=== PATIENT | female | born 1990 | race Caucasian/White ===

== ENCOUNTER 2020-08-26 16:10 | Emergency (ER) | payer SELFPAY ==
[~2020-08-26] VITALS: Ht 165.1 cm; Wt 114.0 kg
[2020-08-26 16:44] LABS: BACTERIA,URINE FEW /HPF; BILIRUBIN,URINE NEGATIVE (NEGATIVE); CLARITY,URINE CLOUDY; COLOR,URINE M00021YELLOW; GLUCOSE, URINE (UA) NEGATIVE (NEGATIVE); KETONES,URINE NEGATIVE (NEGATIVE); LEUKOCYTE ESTERASE ,URINE 2+ (NEGATIVE); NITRITE,URINE NEGATIVE (NEGATIVE); PH,URINE 6.5 (5-9); PROTEIN,URINE NEGATIVE (NEGATIVE)
[2020-08-26 17:00] LABS: BASOPHILS % (AUTO) 0 % (0-10); EOSINOPHILS # (AUTO) 0.1 10^3/uL (0.0-0.3); EOSINOPHILS % (AUTO) 1 % (0-10); HEMATOCRIT 41 % (35-52); HEMOGLOBIN 13.6 G/DL (11.5-16.0); LYMPHOCYTES # (AUTO) 2.3 X 10^3 (1.0-4.0); LYMPHOCYTES % (AUTO) 24 % (12-44); MEAN CORPUSCULAR HEMOGLOBIN 29 PG (25-34); MEAN CORPUSCULAR HGB CONC 33 G/DL (32-36); MEAN CORPUSCULAR VOLUME 86 FL (80-99); MONOCYTES # (AUTO) 0.7 X 10^3 (0.0-1.0); MONOCYTES % (AUTO) 8 % (0-12); NEUTROPHILS # (AUTO) 6.5 X 10^3 (1.8-7.8); NEUTROPHILS % (AUTO) 67 % (42-75); PLATELET COUNT 307 10^3/uL (130-400); WHITE BLOOD COUNT 9.7 10^3/uL (4.3-11.0)
[2020-08-26 17:29] LABS: BUN/CREATININE RATIO 18; CALCIUM 9.4 MG/DL (8.5-10.1); CARBON DIOXIDE 23 MMOL/L (21-32); CHLORIDE 103 MMOL/L (98-107); CREATININE SERUM 0.74 MG/DL (0.60-1.30); GFR ESTIMATED > 60; GLUCOSE 88 MG/DL (70-105); SODIUM 137 MMOL/L (135-145)
[2020-08-26] MEDS ORDERED: fentaNYL INJ 100 MCG/2 ML AMP IVP ONE (17:45)
[2020-08-26] MEDS ORDERED: ONDANSETRON 4 MG/2 ML (SDV) Z0FRAN IVP ONE (17:45)
--- NOTE | 2020-08-26 18:32 | ED GU-Female ---
General Chief Complaint: Abdominal/GI Problems Stated Complaint: RIGHT SIDE PAIN Nursing Triage Note: Patient arrival POV referred from [facility] Walk In [facility] with c/o severe RLQ pain this am before noon and just was told she was at Walk In clinic. No vaginal cramping or bleeding, LMP 07/21/20. Nursing Sepsis Screen: No Definite Risk Exam Limitations: no limitations History of Present Illness Date Seen by Provider: Aug 26, 2020 Time Seen by Provider: 16:30 Initial Comments Patient is a 30-year-old G2, P1, female who presents with right lower quadrant/pelvic pain starting earlier today and positive test. Patient was seen at [facility] and had a positive urine test. Last menstrual period was 07/21/2020. Patient denies flank pain, urinary frequency urgency dysuria and hematuria. No nausea vomiting or sweats. No vaginal discharge. No prior abdominal surgeries. No other acute symptoms or complaints. Timing/Duration: this morning Severity/Quality: moderate Location: other Radiation: other Activities at Onset: other Sexual [place] History: other Modifying Factors: Improves With Other Associated Symptoms: other Allergies and Home Medications Allergies Coded Allergies: Penicillins (Verified Allergy, Unknown, 08/26/20) Patient Home Medication List Home Medication List Reviewed: Yes Review of Systems Review of Systems Constitutional: no symptoms reported EENTM: see HPI, no symptoms reported Respiratory: no symptoms reported, see HPI Cardiovascular: no symptoms reported, see HPI Gastrointestinal: no symptoms reported, see HPI Genitourinary: no symptoms reported, see HPI, pain Musculoskeletal: no symptoms reported, see HPI Skin: no symptoms reported, see HPI Psychiatric/Neurological: No Symptoms Reported, See HPI Endocrine: No Symptoms Reported Hematologic/Lymphatic: No Symptoms Reported All Other Systemes Reviewed Negative Unless Noted: Yes Past Qbxvzud-Ndoael-Srgkyo Hx Past Med/Social Hx: Reviewed Nursing Past Med/Soc Hx Patient Social History Alcohol Use: Occasionally Uses Smoking Status: Never a Smoker 2nd Hand Smoke Exposure: No Recent Infectious Disease Expo: No Recent Hopitalizations: No Seasonal Allergies Seasonal Allergies: No Past Medical History Surgeries: Yes (R hand cyst) Section Respiratory: No Cardiac: No Neurological: No : Yes Hx : 2 Hx Para: 1 Genitourinary: No Gastrointestinal: No Musculoskeletal: No Endocrine: No HEENT: No Cancer: No Psychosocial: No Integumentary: No Blood Disorders: No Physical Exam Vital Signs Vital Signs - First Documented 08/26/20 16:27 Temp 36.9 Pulse 96 Resp 16 B/P (MAP) 158/111 (127) Pulse Ox 99 O2 Delivery Room Air Capillary Refill : Less Than 3 Seconds Height, Weight, BMI Height: '" Weight: lbs. oz. kg; 41.00 BMI Method: General Appearance: no apparent distress HEENT: PERRL/EOMI, TMs normal, pharynx normal Neck: non-tender, full range of motion, supple Cardiovascular: normal peripheral pulses, regular rate, rhythm, no murmur Respiratory: lungs clear Gastrointestinal: soft, tenderness (Right lower quadrant pain/tenderness.), other Pelvic: normal external exam; No normal adnexa, No no cerv. 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, no motor/sensory deficits Focused Exam Sepsis Stage: Ruled Out Progress/Results/Core Measures Suspected Sepsis Recent Fever Within 48 Hours: No Infection Criteria Present: None New/Unexplained Altered Menta: No Sepsis Screen: No Definite Risk SIRS Temperature: Pulse: 96 Respiratory Rate: 16 Laboratory Tests 08/26/20 16:50: White Blood Count 9.7 Blood Pressure 158 /111 Mean: 127 Laboratory Tests 08/26/20 16:50: Creatinine 0.74, Platelet Count 307 Results/Orders Lab Results Laboratory Tests Test 08/26/20 16:31 08/26/20 16:50 08/26/20 18:25 Range/Units Urine Color [id number] Urine Clarity CLOUDY Urine pH 6.5 5-9 Urine Specific [place] 1.015 L 1.016-1.022 Urine Protein NEGATIVE NEGATIVE Urine Glucose (UA) NEGATIVE NEGATIVE Urine Ketones NEGATIVE NEGATIVE Urine Nitrite NEGATIVE NEGATIVE Urine Bilirubin NEGATIVE NEGATIVE Urine Urobilinogen 0.2 < = 1.0 MG/DL Urine Leukocyte Esterase 2+ H NEGATIVE Urine RBC (Auto) 3+ H NEGATIVE Urine RBC 10-25 H /HPF Urine WBC 10-25 H /HPF Urine Squamous Epithelial Cells 10-25 H /HPF Urine Crystals NONE /LPF Urine Bacteria FEW H /HPF Urine Casts NONE /LPF Urine Mucus NEGATIVE /LPF Urine Culture Indicated YES White Blood Count 9.7 4.3-11.0 10^3/uL Red Blood Count 4.75 4.35-5.85 10^6/uL Hemoglobin 13.6 11.5-16.0 G/DL Hematocrit 41 35-52 % Mean Corpuscular Volume 86 80-99 FL Mean Corpuscular Hemoglobin 29 25-34 PG Mean Corpuscular Hemoglobin Concent 33 32-36 G/DL Red Cell Distribution Width 13.3 10.0-14.5 % Platelet Count 307 130-400 10^3/uL Mean Platelet Volume 11.0 H 7.4-10.4 FL Immature Granulocyte % (Auto) 0 % Neutrophils (%) (Auto) 67 42-75 % Lymphocytes (%) (Auto) 24 12-44 % Monocytes (%) (Auto) 8 0-12 % Eosinophils (%) (Auto) 1 0-10 % Basophils (%) (Auto) 0 0-10 % Neutrophils # (Auto) 6.5 1.8-7.8 X 10^3 Lymphocytes # (Auto) 2.3 1.0-4.0 X 10^3 Monocytes # (Auto) 0.7 0.0-1.0 X 10^3 Eosinophils # (Auto) 0.1 0.0-0.3 10^3/uL Basophils # (Auto) 0.0 0.0-0.1 10^3/uL Immature Granulocyte # (Auto) 0.0 0.0-0.1 10^3/uL Sodium Level 137 135-145 MMOL/L Potassium Level 4.0 3.6-5.0 MMOL/L Chloride Level 103 98-107 MMOL/L Carbon Dioxide Level 23 21-32 MMOL/L Anion Gap 11 5-14 MMOL/L Blood Urea Nitrogen 13 7-18 MG/DL Creatinine 0.74 0.60-1.30 MG/DL Estimat Glomerular Filtration Rate > 60 BUN/Creatinine Ratio 18 Glucose Level 88 70-105 MG/DL Calcium Level 9.4 8.5-10.1 MG/DL Human Chorionic Gonadotropin, Quant 99 H <5 MIU/ML Micro Results Microbiology 08/26/20 Wet Prep - Final, Complete My Orders Orders - RAVI CATHERINE DO Cbc With Automated Diff (08/26/20 16:40) Basic Metabolic Panel (08/26/20 16:40) Hcg,Quantitative (08/26/20 16:40) Urinalysis (08/26/20 16:40) Urine Culture (08/26/20 16:31) Fentanyl Inj (Sublimaze Injection) (08/26/20 17:45) Ondansetron Injection (Zofran Injectio (08/26/20 17:45) Culture For Gc Only (08/26/20 17:43) Chlam Dna Probe (08/26/20 17:43) Wet Prep (08/26/20 17:48) Medications Given in ED Current Medications Medications Dose Ordered Sig/Macho Route Start Time Stop Time Status Last Admin Dose Admin Ceftriaxone Sodium 1000 mg/ Sterile Water 10 ml @ 200 mls/hr ONCE ONCE IV 08/26/20 21:30 08/26/20 21:32 08/26/20 21:31 200 MLS/HR Ondansetron HCl 4 mg ONCE ONCE IVP 08/26/20 17:45 08/26/20 17:46 DC 08/26/20 18:00 4 MG Vital Signs/I&O 08/26/20 08/26/20 08/26/20 16:27 17:59 20:15 Temp 36.9 36.9 34.8 Pulse 96 70 Resp 16 20 B/P (MAP) 158/111 (127) 134/84 (101) Pulse Ox 99 100 O2 Delivery Room Air Room Air Capillary Refill : Less Than 3 Seconds Blood Pressure Mean: 127 Departure Communication (Admissions) Right lower quadrant/pelvic paintenderness.\\ hCG quant: 99. Concern for possible appendicitis versus ectopic versus ovarian cyst versus kidney stone versus torsion, versus unknown cause. No imaging available at this facility. Dr. Lety Mello accepts to [facility]. Patient offered transfer by ambulance. She elects to go by POV with spouse driving. She is instructed to arrive immediately there is not stop for food or change of clothing. She is also informed that presentations suggestive of appendicitis or ectopic until proven otherwise. Patient agrees to drive directly to [place] [facility]. Impression Primary Impression: Right lower quadrant pain Disposition: XFER SHT-TRM HOSP Condition: Stable Departure-Patient Inst. Referrals: DANIEL RUBIO MD (PCP/Family) Primary Care Physician RAVI CATHERINE DO Aug 26, 2020 18:32
[2020-08-26] MEDS ORDERED: cefTRIAXone FOR IV USE 1,000 MG in WATER (STERILE) FOR INJECTION 10 ML IV ONE (21:30)
--- NOTE | 2020-08-26 21:35 | Diagnostic Imaging Report ---
EXAMINATION: US retroperitoneal complete. TECHNIQUE: Multiple real-time grayscale images were obtained over the kidneys in various projections, bilaterally. HISTORY: RLQ pain, + test, hematuria. COMPARISON: None available. FINDINGS: The right kidney demonstrates normal echogenicity and cortical thickness. The right kidney measures 11.1 x 4.7 x 6.1 cm. No hydronephrosis. The left kidney demonstrates normal echogenicity and cortical thickness. The left kidney measures 11.2 x 4.1 x 5.2 cm. No hydronephrosis. The urinary bladder is normal. IMPRESSION: Unremarkable kidneys without hydronephrosis. Dictated by: Dictated on workstation # [id number]
--- NOTE | 2020-08-26 21:39 | ED Abdominal Pain ---
General Chief Complaint: Abdominal/GI Problems Stated Complaint: RIGHT SIDE PAIN Nursing Triage Note: Patient arrival POV referred from [facility] with c/o severe RLQ pain this am before noon and just was told she was at Walk In clinic. No vaginal cramping or bleeding, LMP 07/21/20. Sepsis Screen: No Definite Risk Source of Information: Patient History of Present Illness Date Seen by Provider: Aug 26, 2020 Time Seen by Provider: 20:12 Initial Comments PT ARRIVES VIA POV IN TRANSFER FROM [facility]. PT STATES SHE BEGAN HAVING RLQ PAIN THIS MORNING WENT TO URGENT CARE IN [place]--HAD A POSITIVE TEST, AND THEN SENT TO [facility], THEN SENT HERE FOR ULTRASOUND PT HAD LAB AND PELVIC EXAM DONE THERE PAIN IS WORSE WITH MOVEMENTS, ESPECIALLY USING ABDOMINAL MUSCLES, SUCH BENDING OVER AND STANDING UP + NAUSEA, NO VOMITING. LAST ATE AT 10 AM TODAY HAD A NORMAL BM YESTERDAY NO FEVER STATES SHE THINKS SHE HAS UTI, BUT DOES NOT HAVE BURNING ON URINATION, OR URGENCY OR FREQUENCY, ONLY PAIN IN RLQ NO RADIATION OF PAIN LMP 07/21/20. NO CONTROL. PT HAD PREVIOUS VAGINAL DELIVERY OF 1 CHILD, THEN WITH TWINS. NO MISCARRIAGES OR ABORTIONS HAS NOT DONE A HOME TEST NO VAGINAL BLEEDING OR DISCHARGE. Allergies and Home Medications Allergies Coded Allergies: Penicillins (Verified Allergy, Unknown, 08/26/20) Home Medications Cefdinir 300 Mg Capsule, 300 MG PO BID Prescribed by: WILBERTO LORENZO on 08/26/206 Patient Home Medication List Home Medication List Reviewed: Yes Review of Systems Review of Systems Constitutional: no symptoms reported; No fever EENTM: No Symptoms Reported Respiratory: No Symptoms Reported Cardiovascular: No Symptoms Reported Gastrointestinal: See HPI, Abdominal Pain; Denies Constipated, Denies Diarrhea; Nausea; Denies Poor Appetite, Denies Poor Fluid Intake, Denies Vomiting Genitourinary: Denies Burning, Denies Discharge, Denies Drainage, Denies F requency, Denies Flank Pain, Denies Hematuria, Denies Incontinence, Denies Urgency Musculoskeletal: no symptoms reported; No back pain Skin: no symptoms reported; No rash Psychiatric/Neurological: No Symptoms Reported Endocrine: No Symptoms Reported Hematologic/Lymphatic: No Symptoms Reported Past Kdjunvl-Rslqxh-Jwroaq Hx Past Med/Social Hx: Reviewed Nursing Past Med/Soc Hx Patient Social History Alcohol Use: Occasionally Uses Drug of Choice: DENIES Smoking Status: Never a Smoker 2nd Hand Smoke Exposure: No Recent Infectious Disease Expo: No Recent Hopitalizations: No Seasonal Allergies Seasonal Allergies: No Past Medical History Surgeries: Yes ( X 1; RIGHT HAND GANGLION CYST REMOVAL) Section Respiratory: No Cardiac: No Neurological: No : Yes Hx : 2 Hx Para: 3 (FIRST -FOSS, VAGINAL DELIVERYSECOND -TWINS, ) Hx Total # of Abortions (Sp): 0 Reproductive Disorders: No Female Reproductive Disorders: Denies Genitourinary: No Gastrointestinal: No Musculoskeletal: No Endocrine: No HEENT: No Cancer: No Psychosocial: No Integumentary: No Blood Disorders: No Physical Exam Vital Signs Vital Signs - First Documented 08/26/20 16:27 Temp 36.9 Pulse 96 Resp 16 B/P (MAP) 158/111 (127) Pulse Ox 99 O2 Delivery Room Air Capillary Refill : Less Than 3 Seconds Height/Weight/BMI Height: '" Weight: lbs. oz. 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, no motor/sensory deficits, alert, normal mood/affect, oriented x 3 Skin: normal color, warm/dry; No rash Progress/Results/Core Measures Results/Orders Lab Results Laboratory Tests Test 08/26/20 16:31 08/26/20 16:50 08/26/20 18:25 Range/Units Urine Color [id number] Urine Clarity CLOUDY Urine pH 6.5 5-9 Urine Specific [place] 1.015 L 1.016-1.022 Urine Protein NEGATIVE NEGATIVE Urine Glucose (UA) NEGATIVE NEGATIVE Urine Ketones NEGATIVE NEGATIVE Urine Nitrite NEGATIVE NEGATIVE Urine Bilirubin NEGATIVE NEGATIVE Urine Urobilinogen 0.2 < = 1.0 MG/DL Urine Leukocyte Esterase 2+ H NEGATIVE Urine RBC (Auto) 3+ H NEGATIVE Urine RBC 10-25 H /HPF Urine WBC 10-25 H /HPF Urine Squamous Epithelial Cells 10-25 H /HPF Urine Crystals NONE /LPF Urine Bacteria FEW H /HPF Urine Casts NONE /LPF Urine Mucus NEGATIVE /LPF Urine Culture Indicated YES White Blood Count 9.7 4.3-11.0 10^3/uL Red Blood Count 4.75 4.35-5.85 10^6/uL Hemoglobin 13.6 11.5-16.0 G/DL Hematocrit 41 35-52 % Mean Corpuscular Volume 86 80-99 FL Mean Corpuscular Hemoglobin 29 25-34 PG Mean Corpuscular Hemoglobin Concent 33 32-36 G/DL Red Cell Distribution Width 13.3 10.0-14.5 % Platelet Count 307 130-400 10^3/uL Mean Platelet Volume 11.0 H 7.4-10.4 FL Immature Granulocyte % (Auto) 0 % Neutrophils (%) (Auto) 67 42-75 % Lymphocytes (%) (Auto) 24 12-44 % Monocytes (%) (Auto) 8 0-12 % Eosinophils (%) (Auto) 1 0-10 % Basophils (%) (Auto) 0 0-10 % Neutrophils # (Auto) 6.5 1.8-7.8 X 10^3 Lymphocytes # (Auto) 2.3 1.0-4.0 X 10^3 Monocytes # (Auto) 0.7 0.0-1.0 X 10^3 Eosinophils # (Auto) 0.1 0.0-0.3 10^3/uL Basophils # (Auto) 0.0 0.0-0.1 10^3/uL Immature Granulocyte # (Auto) 0.0 0.0-0.1 10^3/uL Sodium Level 137 135-145 MMOL/L Potassium Level 4.0 3.6-5.0 MMOL/L Chloride Level 103 98-107 MMOL/L Carbon Dioxide Level 23 21-32 MMOL/L Anion Gap 11 5-14 MMOL/L Blood Urea Nitrogen 13 7-18 MG/DL Creatinine 0.74 0.60-1.30 MG/DL Estimat Glomerular Filtration Rate > 60 BUN/Creatinine Ratio 18 Glucose Level 88 70-105 MG/DL Calcium Level 9.4 8.5-10.1 MG/DL Human Chorionic Gonadotropin, Quant 99 H <5 MIU/ML Micro Results Microbiology 08/26/20 Wet Prep - Final, Complete My Orders Orders - WILBERTO LORENZO DO Us Appendix [id number] (08/26/20 20:10) Us Ob<14 Wks Sngle W/Transvag (08/26/20 20:10) Us Renal Bilateral [id number] (08/26/20 20:10) Ceftriaxone For Iv Use (Rocephin For I (08/26/20 21:30) Medications Given in ED Current Medications Medications Dose Ordered Sig/Macho Route Start Time Stop Time Status Last Admin Dose Admin Ceftriaxone Sodium 1000 mg/ Sterile Water 10 ml @ 200 mls/hr ONCE ONCE IV 08/26/20 21:30 08/26/20 21:32 DC 08/26/20 21:31 200 MLS/HR Ondansetron HCl 4 mg ONCE ONCE IVP 08/26/20 17:45 08/26/20 17:46 DC 08/26/20 18:00 4 MG Vital Signs/I&O 08/26/20 08/26/20 08/26/20 08/26/20 16:27 17:59 20:15 22:11 Temp 36.9 36.9 34.8 Pulse 96 70 67 Resp 16 20 16 B/P (MAP) 158/111 (127) 134/84 (101) 150/92 Pulse Ox 99 100 100 O2 Delivery Room Air Room Air Room Air 08/27/20 00:00 Intake Total 10 ml Balance 10 ml Blood Pressure Mean: 101 Progress Progress Note : Progress Note PT DECLINES ANY PAIN MEDICATIONS DURING ER STAY PT ADVISED THAT APPENDIX WAS NOT VISUALIZED, AND NO GESTATIONAL SAC WAS VISIBLE AT THIS TIME, SO CANNOT COMPLETELY RULE OUT APPENDICITIS OR ECTOPIC , AND ADVISED TO FOLLOW UP WITH DR. RUBIO IN THE NEXT 1-2 DAYS FOR FURTHER CARE, AND RETURN TO ER IF WORSE. Diagnostic Imaging Comments APPENDIX ULTRASOUND--PER RADIOLOGIST REPORT AT 2146 FINDINGS: The appendix is nonvisualized. No focal mass, fluid collection or lymphadenopathy is seen. No free fluid is seen. IMPRESSION: Nonvisualized appendix. RENAL ULTRASOUND--PER RADIOLOGIST REPORT AT 2146 FINDINGS: The right kidney demonstrates normal echogenicity and cortical thickness. The right kidney measures 11.1 x 4.7 x 6.1 cm. No hydronephrosis. The left kidney demonstrates normal echogenicity and cortical thickness. The left kidney measures 11.2 x 4.1 x 5.2 cm. No hydronephrosis. The urinary bladder is normal. IMPRESSION: Unremarkable kidneys without hydronephrosis. OB ULTRASOUND--PER RADIOLOGIST REPORT AT 215 FINDINGS: Uterus: The uterus is retroverted and measures 8.3 x 7.0 x 3.9 cm. The myometrium is homogeneous without fibroids. Endometrium: The endometrium is normal in thickness and measures 1.4 cm. There is no visualized gestational sac, vascularity or fluid seen within the endometrial cavity. Adnexa: There is a 2.0 cm cystic lesion within the right ovary with surrounding vascularity suggestive of a corpus luteum cyst. There is internal debris noted. The left ovary is unremarkable. The right ovary measures 4.3 x 2.7 x 2.6 cm and the left ovary measures 2.4 x 1.6 x 1.6 cm. Duplex images reveal normal vascular flow to both ovaries. Other: There is no free fluid within the pelvis. IMPRESSION: 1. No visualized gestational sac within the endometrium. Recommend follow-up with beta hCG and ultrasound as clinically indicated. 2. A 2.0 cm cystic lesion within the right ovary favors a corpus luteum cyst. This could be followed up with ultrasound to document resolution. Ectopic would be within the differential but is considered less likely given its intraovarian placement. Close follow-up with beta hCG and ultrasound is recommended. Reviewed: Reviewed by Me Departure Impression Primary Impression: Right lower quadrant pain Additional Impressions: NEW DIAGNOSIS OF UTI (urinary tract infection) Microscopic hematuria Right ovarian cyst Disposition: 01 HOME, SELF-CARE Condition: Stable Departure-Patient Inst. Referrals: DANIEL RUBIO MD (PCP) Primary Care Physician Patient Instructions: Ovarian Cyst (DC), - The Second Month, Stomach Pain in Early , Urinary Tract Infections in Add. Discharge Instructions: NOTHING IN VAGINA--NO TAMPONS, DOUCHING OR INTERCOURSE TYLENOL NEEDED FOR PAIN FOLLOW UP WITH DR. RUBIO IN 1-2 DAYS FOR FURTHER CARE, RETURN TO ER IF WORSE All discharge instructions reviewed with patient and/or family. Voiced understanding. Scripts Cefdinir (Cefdinir) 300 Mg Capsule 300 MG PO BID, #20 CAP Prov: WILBERTO LORENZO DO 08/26/20 WILBERTO LORENZO DO Aug 26, 2020 21:39
--- NOTE | 2020-08-26 21:42 | Diagnostic Imaging Report ---
EXAM: Appendix ultrasound. EXAM DATE: 08/26/2020. COMPARISON: None. HISTORY: Right lower quadrant pain and . TECHNIQUE: Multiple sonographic images of the right lower quadrant were obtained. FINDINGS: The appendix is nonvisualized. No focal mass, fluid collection or lymphadenopathy is seen. No free fluid is seen. IMPRESSION: Nonvisualized appendix. Dictated by: Dictated on workstation # [id number]
--- NOTE | 2020-08-26 21:54 | Diagnostic Imaging Report ---
PROCEDURE: Pelvic complete, transabdominal and transvaginal sonogram. Limited pelvic Doppler. TECHNIQUE: Multiple real-time grayscale images were obtained of the pelvis in various projections, transabdominally and transvaginally. Limited pelvic duplex images were obtained. HISTORY: RLQ pain, + test, hematuria. COMPARISON: None available. FINDINGS: Uterus: The uterus is retroverted and measures 8.3 x 7.0 x 3.9 cm. The myometrium is homogeneous without fibroids. Endometrium: The endometrium is normal in thickness and measures 1.4 cm. There is no visualized gestational sac, vascularity or fluid seen within the endometrial cavity. Adnexa: There is a 2.0 cm cystic lesion within the right ovary with surrounding vascularity suggestive of a corpus luteum cyst. There is internal debris noted. The left ovary is unremarkable. The right ovary measures 4.3 x 2.7 x 2.6 cm and the left ovary measures 2.4 x 1.6 x 1.6 cm. Duplex images reveal normal vascular flow to both ovaries. Other: There is no free fluid within the pelvis. IMPRESSION: 1. No visualized gestational sac within the endometrium. Recommend follow-up with beta hCG and ultrasound as clinically indicated. 2. A 2.0 cm cystic lesion within the right ovary favors a corpus luteum cyst. This could be followed up with ultrasound to document resolution. Ectopic would be within the differential but is considered less likely given its intraovarian placement. Close follow-up with beta hCG and ultrasound is recommended. Dictated by: Dictated on workstation # [id number]
[2020-08-26] MEDS ORDERED: CEFD300C3 PO (22:02)
[2020-08-26 22:11] VITALS: BP 150/92
== END 2020-08-26 22:14 | disposition home or self-care (01) ==
LOC: EDUNIT# 16:10 → ER FS 16:19 → ER 22:14
DX: R10.31 Right lower quadrant pain (principal); I10 Essential (primary) hypertension; Z88.0 Allergy status to penicillin
CPT/HCPCS: 36415; 76705; 76770; 76801; 76817; 80048; 81000; 84702; 85025; 87070; 87077; 87088; 87210; 87491

== ENCOUNTER → 2020-09-03 | Outpatient (CLI) | payer SELFPAY ==
[~2020-09-03] MED LIST: CEFD300C3 PO
== END ==
LOC: LAB FS 08:32
PROVIDERS: ATTEND Family Medicine
DX: R10.2 Pelvic and perineal pain (principal)
CPT/HCPCS: 36415; 84702

== ENCOUNTER 2020-09-09 11:03 | Emergency (ER) | payer SELFPAY ==
[~2020-09-09] VITALS: Ht 165 cm; Wt 114.5 kg
--- NOTE | 2020-09-09 11:44 | ED GU-Female ---
General Chief Complaint: OB < 20 WEEKS Stated Complaint: POSSIBLE MISCARRIAGE, APPROX 6-7 WEEKS Nursing Triage Note: PT TO ED W/ C/O POSS MISCARRIAGE. REPORTS HAD AN ULTRASOUND LAST WEEK ET WAS TOLD HAD A POSSIBLE BLIGHTED OVUM. STATES SHE STARTED SPOTTING ET CRAMPING LAST NOC. 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 ALSO STATES CRAMPING NO WORSE THAN A PERIOD. NO OTHER C/O VOICED. DOES REPORT SHE IS TO HAVE ANOTHER ULTRASOUND ET BLOOD WORK THIS WEEK. Nursing Sepsis Screen: No Definite Risk Source: patient Exam Limitations: no limitations History of Present Illness Date Seen by Provider: Sep 09, 2020 Time Seen by Provider: 11:41 Initial Comments To ER with reports of possible miscarriage. This will be her third . This was unknown to her until about 2 weeks ago when she had some right lower quadrant pain. She was seen at [facility] and had a positive beta hCG at 99. She was then sent down here for ultrasound to rule out ectopic. She had follow-up ultrasound with Dr. Rubio this past week and she was found to have an an empty intrauterine gestational sac. She was believed to be about 6 weeks . Starting last night she had some increased vaginal bleeding and cramping.. Timing/Duration: constant Severity/Quality: moderate Location: suprapubic Radiation: none Activities at Onset: none Prior Genitourinary Problems: none Allergies and Home Medications Allergies Coded Allergies: Penicillins (Verified Allergy, Unknown, 08/26/20) Home Medications Cefdinir 300 Mg Capsule, 300 MG PO BID Prescribed by: WILBERTO LORENZO on 08/26/20 5470 Patient Home Medication List Home Medication List Reviewed: Yes Review of Systems Review of Systems Constitutional: see HPI EENTM: see HPI Respiratory: no symptoms reported Cardiovascular: no symptoms reported Genitourinary: see HPI Musculoskeletal: no symptoms reported Skin: no symptoms reported Psychiatric/Neurological: No Symptoms Reported Endocrine: No Symptoms Reported Hematologic/Lymphatic: No Symptoms Reported Past Dbquxow-Vmgnww-Aqifxv Hx Patient Social History Alcohol Use: Denies Use Drug of Choice: DENIES Smoking Status: Never a Smoker 2nd Hand Smoke Exposure: No Recent Infectious Disease Expo: No Recent Hopitalizations: No Seasonal Allergies Seasonal Allergies: No Past Medical History Surgeries: Yes ( X 1; RIGHT HAND GANGLION CYST REMOVAL) Section Respiratory: No Cardiac: No Neurological: No Hx : 3 Hx Para: 3 Reproductive Disorders: No Female Reproductive Disorders: Denies Genitourinary: No Gastrointestinal: No Musculoskeletal: No Endocrine: No HEENT: No Cancer: No Psychosocial: No Integumentary: No Blood Disorders: No Physical Exam Vital Signs Vital Signs - First Documented 09/09/20 11:11 Temp 36.2 Pulse 71 Resp 18 B/P (MAP) 127/70 (89) Pulse Ox 98 O2 Delivery Room Air Capillary Refill : Less Than 3 Seconds Height, Weight, BMI Height: '" Weight: lbs. oz. kg; 42.00 BMI Method: General Appearance: WD/WN, no apparent distress, other (Alert and oriented very pleasant no distress) Respiratory: no respiratory distress, no accessory muscle use Gastrointestinal: normal bowel sounds, non tender, soft Extremities: normal range of motion, non-tender Neurologic/Psychiatric: alert, normal mood/affect, oriented x 3 Skin: normal color, warm/dry Progress/Results/Core Measures Suspected Sepsis Recent Fever Within 48 Hours: No Infection Criteria Present: None New/Unexplained Altered Menta: No Sepsis Screen: No Definite Risk SIRS Temperature: Pulse: 71 Respiratory Rate: 18 Laboratory Tests 09/09/20 11:40: White Blood Count 5.9 Blood Pressure 127 /70 Mean: 89 Laboratory Tests 09/09/20 11:40: Platelet Count 242 Results/Orders Lab Results Laboratory Tests Test 09/09/20 11:40 Range/Units White Blood Count 5.9 4.3-11.0 10^3/uL Red Blood Count 4.03 3.80-5.11 10^6/uL Hemoglobin 11.9 11.5-16.0 g/dL Hematocrit 36 35-52 % Mean Corpuscular Volume 89 80-99 fL Mean Corpuscular Hemoglobin 30 25-34 pg Mean Corpuscular Hemoglobin Concent 33 32-36 g/dL Red Cell Distribution Width 13.6 10.0-14.5 % Platelet Count 242 130-400 10^3/uL Mean Platelet Volume 11.1 9.0-12.2 fL Human Chorionic Gonadotropin, Quant 20782 H <5 MIU/ML My Orders Orders - ILEANA MULLER COMMUNICATIONS ADMINISTRATOR Rh Immune Globulin Rhophylac (09/09/20 12:32) Rhogam Administration (09/09/20 12:32) Vital Signs/I&O 09/09/20 11:11 Temp 36.2 Pulse 71 Resp 18 B/P (MAP) 127/70 (89) Pulse Ox 98 O2 Delivery Room Air Capillary Refill : Less Than 3 Seconds Blood Pressure Mean: 89 Departure Impression Primary Impression: Vaginal bleeding affecting early Disposition: HOME, SELF-CARE Condition: Stable Departure-Patient Inst. Decision time for Depature: 12:44 Referrals: DNAIEL RUBIO MD (PCP/Family) Primary Care Physician Patient Instructions: Bleeding In Early Add. Discharge Instructions: 1. Your quantitative hCG was initially 99, then about 3000 and today 30,000. Return to ER for bleeding that soaks more than 2 pads per hour for more than 2 hours or any lightheadednes or any intolerable pain. Keep your ultrasound appointment on Thursday. All discharge instructions reviewed with patient and/or family. Voiced understanding. Copy Copies To 1: DANIEL RUBIO MD, PETER J APRN Sep 09, 2020 11:44
[2020-09-09 11:54] LABS: HEMOGLOBIN 11.9 g/dL (11.5-16.0); MEAN PLATELET VOLUME 11.1 fL (9.0-12.2); WHITE BLOOD COUNT 5.9 10^3/uL (4.3-11.0)
[2020-09-09 13:11] VITALS: BP 134/77
== END 2020-09-09 13:11 | disposition home or self-care (01) ==
LOC: EDUNIT# 11:03 → ER 11:06
DX: O20.8 Other hemorrhage in early pregnancy (principal); Z3A.00 Weeks of gestation of pregnancy not specified; Z88.0 Allergy status to penicillin
CPT/HCPCS: 36415; 84702; 85027; 86900; 86901; 96372

== ENCOUNTER → 2020-09-12 | Outpatient (CLI) | payer SELFPAY | LOC: LAB FS 08:13 | PROVIDERS: ATTEND Family Medicine | DX: O20.0 Threatened abortion (principal) | CPT/HCPCS: 36415; 84702 ==

== ENCOUNTER → 2020-09-19 | Outpatient (CLI) | payer SELFPAY | LOC: LAB FS 13:58 | PROVIDERS: ATTEND Family Medicine | DX: O20.9 Hemorrhage in early pregnancy, unspecified (principal); Z3A.00 Weeks of gestation of pregnancy not specified | CPT/HCPCS: 36415; 84702 ==

== ENCOUNTER → 2020-10-17 | Outpatient (CLI) | payer SELFPAY | LOC: FS 14:38 | PROVIDERS: ATTEND Family Medicine | DX: Z34.91 Encounter for supervision of normal pregnancy, unspecified, first trimester (principal); Z3A.00 Weeks of gestation of pregnancy not specified | CPT/HCPCS: 87491; 87591 ==

== ENCOUNTER → 2020-10-22 | Outpatient (CLI) | payer SELFPAY ==
--- NOTE | 2020-10-22 11:13 | Diagnostic Imaging Report ---
INDICATION: Right upper quadrant abdominal pain. TECHNIQUE: Multiple grayscale sonographic images were obtained of the right upper quadrant of the abdomen. CORRELATION STUDY: None FINDINGS: LIVER: There is uniform echotexture within the visualized portions of the liver. There is normal, hepatopedal direction of flow within the main portal vein. Liver length 16.1 cm. GALLBLADDER: The gallbladder demonstrates no definitive shadowing gallstones. No abnormal gallbladder wall thickening or pericholecystic fluid. COMMON BILE DUCT: Nondilated at 0.5 cm. PANCREAS: Largely obscured by overlying bowel gas. AORTA/IVC: Not well visualized. RIGHT KIDNEY: 11.0 x 5.3 x 5.2 cm. No hydronephrosis. OTHER: None. IMPRESSION: 1. Unremarkable appearing right upper quadrant abdominal ultrasound. Dictated by: Dictated on workstation # [id number]
== END ==
LOC: RAD FS 09:49
PROVIDERS: ATTEND Family Medicine
DX: R10.11 Right upper quadrant pain (principal)
CPT/HCPCS: 76705

== ENCOUNTER → 2020-12-07 | Outpatient (CLI) | payer SELFPAY | LOC: LAB FS 12:35 | PROVIDERS: ATTEND Family Medicine | DX: Z34.91 Encounter for supervision of normal pregnancy, unspecified, first trimester (principal); Z3A.00 Weeks of gestation of pregnancy not specified | CPT/HCPCS: 36415; 82105; 82677; 84702; 86336 ==

== ENCOUNTER → 2020-12-18 | Outpatient (CLI) | payer SELFPAY ==
[2020-12-18 10:48] LABS: HEMATOCRIT 34 % (35-52); HEMOGLOBIN 11.4 G/DL (11.5-16.0); MEAN CORPUSCULAR HEMOGLOBIN 30 PG (25-34); MEAN CORPUSCULAR HGB CONC 33 G/DL (32-36); MEAN CORPUSCULAR VOLUME 90 FL (80-99); PLATELET COUNT 250 10^3/uL (130-400); WHITE BLOOD COUNT 9.8 10^3/uL (4.3-11.0)
== END ==
LOC: LAB FS 09:25
PROVIDERS: ATTEND Family Medicine
DX: Z34.91 Encounter for supervision of normal pregnancy, unspecified, first trimester (principal); Z3A.00 Weeks of gestation of pregnancy not specified
CPT/HCPCS: 36415; 85027; 86592; 86703; 86762; 86850; 86900; 86901; 87088; 87340

== ENCOUNTER 2021-01-28 10:37 | Outpatient (CLI) | payer SELFPAY ==
[~2021-01-28] VITALS: Ht 165 cm; Wt 110.0 kg
[2021-01-28] MEDS ORDERED: PREN-142 PO (10:58)
[2021-01-28 11:10] VITALS: BP 117/68
[2021-01-28 11:23] LABS: BILIRUBIN,URINE NEGATIVE (NEGATIVE); CLARITY,URINE SL CLOUDY; COLOR,URINE YELLOW; GLUCOSE, URINE (UA) NEGATIVE (NEGATIVE); KETONES,URINE TRACE (NEGATIVE); LEUKOCYTE ESTERASE ,URINE TRACE (NEGATIVE); NITRITE,URINE NEGATIVE (NEGATIVE); PROTEIN,URINE NEGATIVE (NEGATIVE)
[2021-01-28 11:38] LABS: BACTERIA,URINE FEW /HPF
[2021-01-28] MEDS ORDERED: LACTATED RINGERS 1,000 ML IV ONE (11:39)
[2021-01-28] MEDS ORDERED: ONDANSETRON 4 MG/2 ML (SDV) Z0FRAN ONE (11:51)
[2021-01-28] MEDS ORDERED: ONDANSETRON 4 MG/2 ML (SDV) Z0FRAN IVP ONE (12:00)
[2021-01-28] MEDS ORDERED: LACTATED RINGERS 1,000 ML IV SCH (12:00)
--- NOTE | 2021-01-29 07:53 | Physician Query-Final Dx ---
Clinic Account Progress/Dx Physician Query: Please give diagnosis Please include # weeks gestation Date of Service Jan 28, 2021 at 10:37 NANCY MIGUEL Jan 29, 2021 07:53
== END 2021-01-28 14:25 | disposition home or self-care (01) ==
LOC: WSo 10:37 → LDRP 10:37 → WSo 14:25
PROVIDERS: ATTEND Family Medicine
DX: O21.9 Vomiting of pregnancy, unspecified (principal); Z3A.26 26 weeks gestation of pregnancy
CPT/HCPCS: 81000; 87088; 96361; 96374; 99213

== ENCOUNTER → 2021-02-26 | Outpatient (CLI) | payer SELFPAY ==
[~2021-02-26] MED LIST changes: +PREN-142 PO
[2021-02-26 14:53] LABS: HEMATOCRIT 34 % (35-52); HEMOGLOBIN 11.7 g/dL (11.5-16.0); MEAN CORPUSCULAR HEMOGLOBIN 30 pg (25-34); WHITE BLOOD COUNT 8.6 10^3/uL (4.3-11.0)
[2021-02-26 14:54] LABS: BASOPHILS % (AUTO) 0 % (0-10); EOSINOPHILS # (AUTO) 0.1 10^3/uL (0.0-0.3); EOSINOPHILS % (AUTO) 1 % (0-10); LYMPHOCYTES # (AUTO) 1.4 X 10^3 (1.0-4.0); LYMPHOCYTES % (AUTO) 17 % (12-44); MEAN CORPUSCULAR HGB CONC 34 g/dL (32-36); MEAN CORPUSCULAR VOLUME 86 fL (80-99); MEAN PLATELET VOLUME 10.6 fL (9.0-12.2); MONOCYTES # (AUTO) 0.5 X 10^3 (0.0-1.0); MONOCYTES % (AUTO) 6 % (0-12); NEUTROPHILS # (AUTO) 6.5 X 10^3 (1.8-7.8); NEUTROPHILS % (AUTO) 76 % (42-75); PLATELET COUNT 277 10^3/uL (130-400)
== END ==
LOC: LAB FS 14:13
PROVIDERS: ATTEND Family Medicine
DX: Z34.91 Encounter for supervision of normal pregnancy, unspecified, first trimester (principal); Z3A.00 Weeks of gestation of pregnancy not specified
CPT/HCPCS: 36415; 82950; 85025; 86780; 86850

== ENCOUNTER → 2021-03-04 | Outpatient (CLI) | payer SELFPAY | LOC: LABNPT 15:03 | PROVIDERS: ATTEND Family Medicine | DX: O46.93 Antepartum hemorrhage, unspecified, third trimester (principal); Z3A.00 Weeks of gestation of pregnancy not specified | CPT/HCPCS: 87088 ==

== ENCOUNTER → 2021-03-20 | Outpatient (CLI) | payer SELFPAY | LOC: LABNPT 14:56 | PROVIDERS: ATTEND Family Medicine | DX: O23.43 Unspecified infection of urinary tract in pregnancy, third trimester (principal); Z3A.00 Weeks of gestation of pregnancy not specified | CPT/HCPCS: 87088 ==

== ENCOUNTER 2021-03-21 19:07 | Outpatient (CLI) | payer SELFPAY ==
[~2021-03-21] VITALS: Ht 165.1 cm; Wt 108.5 kg
[2021-03-21] VITALS (7 sets, daily range): BP systolic 136–141; BP diastolic 73–84
[2021-03-21 19:52] LABS: BILIRUBIN,URINE NEGATIVE (NEGATIVE); CLARITY,URINE CLEAR; COLOR,URINE YELLOW; GLUCOSE, URINE (UA) NEGATIVE (NEGATIVE); KETONES,URINE 1+ (NEGATIVE); LEUKOCYTE ESTERASE ,URINE NEGATIVE (NEGATIVE); NITRITE,URINE NEGATIVE (NEGATIVE); PROTEIN,URINE NEGATIVE (NEGATIVE)
[2021-03-21] MEDS ORDERED: BETAMETHASONE ACE/NA PHOS 6 MG/ML (CELESTONE SOLUSPAN) IM SCH (19:52)
[2021-03-21 20:07] LABS: AMORPHOUS SEDIMENT,UR RARE AMOR URATES /LPF; BACTERIA,URINE NEGATIVE /HPF; SQUAMOUS EPITHELIAL CELL,UR 0-2 /HPF
[2021-03-21 20:10] LABS: BASOPHILS % (AUTO) 0 % (0-10); EOSINOPHILS # (AUTO) 0.1 10^3/uL (0.0-0.3); EOSINOPHILS % (AUTO) 2 % (0-10); HEMATOCRIT 30 % (35-52); HEMOGLOBIN 10.1 g/dL (11.5-16.0); LYMPHOCYTES % (AUTO) 21 % (12-44); MEAN CORPUSCULAR HEMOGLOBIN 30 pg (25-34); MEAN CORPUSCULAR HGB CONC 33 g/dL (32-36); MEAN CORPUSCULAR VOLUME 90 fL (80-99); MEAN PLATELET VOLUME 10.5 fL (9.0-12.2); MONOCYTES # (AUTO) 0.8 10^3/uL (0.0-1.0); MONOCYTES % (AUTO) 8 % (0-12); NEUTROPHILS # (AUTO) 6.7 10^3/uL (1.8-7.8); NEUTROPHILS % (AUTO) 69 % (42-75); PLATELET COUNT 252 10^3/uL (130-400); WHITE BLOOD COUNT 9.6 10^3/uL (4.3-11.0)
[2021-03-21 20:34] LABS: URINE PROTEIN FOR RATIO ONLY < 6 MG/DL (6-12)
[2021-03-21 20:36] LABS: ALBUMIN 3.2 GM/DL (3.2-4.5); BILIRUBIN,TOTAL 0.5 MG/DL (0.1-1.0); CALCIUM 8.8 MG/DL (8.5-10.1); CREATININE SERUM 0.63 MG/DL (0.60-1.30); POTASSIUM 3.6 MMOL/L (3.6-5.0); TOTAL PROTEIN 6.4 GM/DL (6.4-8.2); URIC ACID 5.5 MG/DL (2.6-7.2)
[2021-03-21 21:07] LABS: URINE CREATININE FOR RATIO 17 MG/DL (30-125)
--- NOTE | 2021-03-22 08:31 | Physician Query-Final Dx ---
NANCY MIGUEL 03/22/21 0831: Clinic Account Progress/Dx Physician Query: Please give diagnosis Please include # weeks gestation Date of Service Mar 21, 2021 at 19:07 KEE LAUGHLIN DO 03/23/21 1701: Clinic Account Progress/Dx DIAGNOSIS: Diagnosis 33 week IUP GHTN Headache NANCY MIGUEL Mar 22, 2021 08:31 KEE LAUGHILN DO Mar 23, 2021 17:01
== END 2021-03-21 21:21 | disposition home or self-care (01) ==
LOC: WSo 19:07 → LDRP 19:10 → WSo 21:21
PROVIDERS: ATTEND Obstetrics & Gynecology
DX: O13.3 Gestational [pregnancy-induced] hypertension without significant proteinuria, third trimester (principal); Z3A.33 33 weeks gestation of pregnancy
CPT/HCPCS: 36415; 80053; 81000; 82570; 84156; 84550; 85025

== ENCOUNTER 2021-03-22 20:07 | Outpatient (CLI) | payer SELFPAY ==
[2021-03-22] MEDS ORDERED: BETAMETHASONE ACE/NA PHOS 6 MG/ML (CELESTONE SOLUSPAN) IM SCH (20:30)
[2021-03-22 20:57] VITALS: BP 133/75
[2021-03-22 21:07] VITALS: BP 133/75
--- NOTE | 2021-03-25 08:19 | Physician Query-Final Dx ---
Clinic Account Progress/Dx Physician Query: Please give diagnosis Please include # weeks gestation Date of Service Mar 22, 2021 at 20:07 NANCY MIGUEL Mar 25, 2021 08:18
--- NOTE | 2021-03-25 08:22 | Physician Query-Final Dx ---
Clinic Account Progress/Dx Physician Query: Please give diagnosis Please include # weeks gestation Date of Service Mar 22, 2021 at 20:07 NANCY MIGUEL Mar 25, 2021 08:22
== END 2021-03-22 21:02 ==
LOC: LDRP 20:07 → WSo 20:07
PROVIDERS: ATTEND Obstetrics & Gynecology
DX: O13.9 Gestational [pregnancy-induced] hypertension without significant proteinuria, unspecified trimester (principal); Z3A.00 Weeks of gestation of pregnancy not specified
CPT/HCPCS: 96372; 99212

== ENCOUNTER → 2021-04-03 | Outpatient (CLI) | payer SELFPAY | LOC: LABNPT 14:47 | PROVIDERS: ATTEND Family Medicine | DX: Z34.90 Encounter for supervision of normal pregnancy, unspecified, unspecified trimester (principal); Z3A.00 Weeks of gestation of pregnancy not specified | CPT/HCPCS: 87077; 87081; 87184 ==

== ENCOUNTER 2021-04-22 05:31 | Outpatient (CLI) | payer MEDICAID ==
[~2021-04-22] VITALS: Ht 165.1 cm; Wt 108.4 kg
== END 2021-04-22 12:18 | disposition home or self-care (01) ==
LOC: PREOP 05:31
PROVIDERS: ATTEND Obstetrics & Gynecology
DX: Z01.818 Encounter for other preprocedural examination (principal)

== ENCOUNTER 2021-04-29 05:55 | Inpatient (IN) | payer MEDICAID ==
[2021-04-29] VITALS (11 sets, daily range): BP systolic 94–138; BP diastolic 61–90
[~2021-04-29] VITALS: Ht 165.1 cm; Wt 109.4 kg
[2021-04-29] MEDS ORDERED: METOCLOPRAMIDE INJ 10 MG/2 ML (REGLAN) ONE (06:17)
[2021-04-29] MEDS ORDERED: CITRIC ACID/SOB CIT (BICITRA) 30 ML UDC ONE (06:17)
[2021-04-29] MEDS ORDERED: LACTATED RINGERS 2,000 ML IV ONE (06:17)
[2021-04-29] MEDS ORDERED: FAMOTIDINE 20MG/2ML IV (PEPCID) ONE (06:18)
[2021-04-29] MEDS ORDERED: FAMOTIDINE 20MG/2ML IV (PEPCID) IV ONE (06:45)
[2021-04-29] MEDS ORDERED: METOCLOPRAMIDE INJ 10 MG/2 ML (REGLAN) IV ONE (06:45)
[2021-04-29] MEDS ORDERED: LACTATED RINGERS 1,000 ML IV PRN ×2 (06:45)
[2021-04-29] MEDS ORDERED: CITRIC ACID/SOB CIT (BICITRA) 30 ML UDC PO ONE (06:45)
[2021-04-29] MEDS ORDERED: CLINDAMYCIN 900 MG/50 ML IVPB 50 ML IV ONE (06:45)
[2021-04-29] MEDS ORDERED: CATHETER FLUSH 10 ML SYR IV PRN (06:45)
[2021-04-29 06:46] LABS: BASOPHILS % (AUTO) 0 % (0-10); EOSINOPHILS # (AUTO) 0.1 10^3/uL (0.0-0.3); EOSINOPHILS % (AUTO) 2 % (0-10); HEMATOCRIT 33 % (35-52); HEMOGLOBIN 11.1 g/dL (11.5-16.0); LYMPHOCYTES # (AUTO) 1.9 10^3/uL (1.0-4.0); LYMPHOCYTES % (AUTO) 23 % (12-44); MEAN CORPUSCULAR HEMOGLOBIN 29 pg (25-34); MEAN CORPUSCULAR HGB CONC 34 g/dL (32-36); MEAN CORPUSCULAR VOLUME 87 fL (80-99); MEAN PLATELET VOLUME 10.8 fL (9.0-12.2); MONOCYTES # (AUTO) 0.7 10^3/uL (0.0-1.0); MONOCYTES % (AUTO) 8 % (0-12); NEUTROPHILS # (AUTO) 5.4 10^3/uL (1.8-7.8); NEUTROPHILS % (AUTO) 67 % (42-75); PLATELET COUNT 289 10^3/uL (130-400); WHITE BLOOD COUNT 8.1 10^3/uL (4.3-11.0)
[2021-04-29] MEDS ORDERED: fentaNYL INJ 100 MCG/2 ML AMP ONE (07:12)
[2021-04-29] MEDS ORDERED: OXYTOCIN PRE-MIX DRIP 1,000 ML IV ONE (07:12)
[2021-04-29] MEDS ORDERED: ONDANSETRON 4 MG/2 ML (SDV) Z0FRAN IVP PRN (07:15)
[2021-04-29] MEDS ORDERED: HYDROcodone/APAP 5 MG/325 MG (LORTAB) TAB PO PRN (07:15)
[2021-04-29] MEDS ORDERED: NALOXONE 0.4 MG/ML 1 ML (NARCAN) VIAL IV PRN (07:15)
[2021-04-29] MEDS ORDERED: MEASLES,MUMPS,RUBELLA 1 EA INJ SC SCH (07:15)
--- NOTE | 2021-04-29 07:15 | History & Physical-OB ---
OB - Chief Complaint & HPI Date/Time Date of Admission: Date of Admission: Apr 29, 2021 at 05:55 Date seen by a Provider: Apr 29, 2021 Time Seen by a Provider: 07:05 Chief Complaint/History OB-Reason for Admission/Chief: Section Hx : 3 Hx Para: 2 Expected Date of Delivery: May 06, 2021 Gestational Age in Weeks: 39 Gestational Age in Days: 0 Indication for : desires repeat Admission Nurse Assessment Rev: Yes History of Labs O neg Antibody neg GBS neg Allergies and Home Medications Allergies Coded Allergies: Penicillins (Verified Allergy, Unknown, 04/22/21) Pertussis Vaccines (Verified Allergy, Unknown, Anaphylaxis, 04/22/21) SWELLED UP amoxicillin (Verified Allergy, Unknown, Anaphylaxis, 04/22/21) MOUTH SWELLED UP clavulanic acid (Verified Allergy, Unknown, Anaphylaxis, 04/22/21) MOUTH SWELLED UP Patient Home Medication List Home Medication List Reviewed: Yes Vit No.124/Iron/FA ( Vitamin Tablet) 1 Each Tablet, 1 EACH PO, (Reported) Entered as Reported by: SUSAN STEPHENSON on 01/28/21 1058 OB - History Hx of Present Care: Yes Ultrasounds: Normal mid trimester US Obstetrical Complications: Gestational Hypertension Medical Complications: None Patient Past Medical History n/a Social History/Family History 2nd Hand Smoke Exposure: No OB - Admission Exam Physical Exam HEENT: NCAT Heart: Rhythm Normal Lungs: Clear Abdomen: Gravid Extremities: Normal Reflexes: Normal Heart Rate: 130's Accelerations: Accelerations Present Decelerations: No Decelerations Short Term Variability: Present Assisted Variability: Average (6-25) Contractions on Admission: >10 Minutes Apart Intensity: Mild Labs Laboratory Tests Test 04/29/21 06:20 Range/Units White Blood Count 8.1 4.3-11.0 10^3/uL Red Blood Count 3.78 L 3.80-5.11 10^6/uL Hemoglobin 11.1 L 11.5-16.0 g/dL Hematocrit 33 L 35-52 % Mean Corpuscular Volume 87 80-99 fL Mean Corpuscular Hemoglobin 29 25-34 pg Mean Corpuscular Hemoglobin Concent 34 32-36 g/dL Red Cell Distribution Width 13.8 10.0-14.5 % Platelet Count 289 130-400 10^3/uL Mean Platelet Volume 10.8 9.0-12.2 fL Immature Granulocyte % (Auto) 0 % Neutrophils (%) (Auto) 67 42-75 % Lymphocytes (%) (Auto) 23 12-44 % Monocytes (%) (Auto) 8 0-12 % Eosinophils (%) (Auto) 2 0-10 % Basophils (%) (Auto) 0 0-10 % Neutrophils # (Auto) 5.4 1.8-7.8 10^3/uL Lymphocytes # (Auto) 1.9 1.0-4.0 10^3/uL Monocytes # (Auto) 0.7 0.0-1.0 10^3/uL Eosinophils # (Auto) 0.1 0.0-0.3 10^3/uL Basophils # (Auto) 0.0 0.0-0.1 10^3/uL Immature Granulocyte # (Auto) 0.0 0.0-0.1 10^3/uL OB - Assessment/Plan/Diagnosis Assessment Assessment: section Admission Dx 30 yo @ 39 weeks Previous GHTN GBS neg Admission Status: Inpatient Order (span 2 midnights) Reason for Inpatient Admission: Repeat Plan Plan: Section KEE LAUGHLIN DO Apr 29, 2021 07:14
[2021-04-29] MEDS ORDERED: PHENYLEPHRINE 100 MCG/ML 10 ML (ANESTHESIA) SYR ONE (07:45)
[2021-04-29] MEDS ORDERED: ONDANSETRON 4 MG/2 ML (SDV) Z0FRAN ONE (08:21)
--- NOTE | 2021-04-29 09:37 | Discharge Inst-Women's Service ---
Discharge Inst-Women's Serv Depart Medication/Instructions New, Converted or Re-Newed RX: Transmitted to Pharmacy Final Diagnosis POD 2 RLTCS Problems Reviewed?: Yes Consults/Follow Up Additional Follow Up: Yes Orders/Referrals Dr. Seals in 7-10 days, and Dr. Monroe in 6 weeks Activity Activity: Activity as Tolerated Driving Instructions: No Driving for 1 Week NO SMOKING: NO SMOKING Nothing Inside Vagina: No Douching, No [place], No Tampons Diet Discharge Diet: No Restrictions Symptoms to Report to : Bleeding Excessive, Pain Increased, Fever Over 101 Degrees F, Vaginal Bleeding Increase, Questions/Concerns For Any Problems or Questions: Contact Your Physician Skin/Wound Care Infection Signs and Symptoms: Increased Redness, Foul Odor of Wound, Increased Drainage, Skin Itchy or Has a Rash, Increased Swelling, Temperature Above 101 F Operative Area Clean and Dry: Keep Incision Clean/Dry Stitches/Demetria/Dermabond: Dermabond, Care of Stitches Bathing Instructions: KEE Hill DO Apr 29, 2021 09:37
[2021-04-29] MEDS ORDERED: ACHD5005 PO (09:39)
[2021-04-29] MEDS ORDERED: IBUP-844 PO (09:39)
[2021-04-29] MEDS ORDERED: DOCU100C37 PO (09:39)
[2021-04-29] MEDS: OXYTOCIN PRE-MIX DRIP 500 ML IV SCH ×2 (10:40→14:30)
[2021-04-29] MEDS: KETOROLAC 30 MG/ML VIAL IV SCH ×3 (10:41→23:34)
--- NOTE | 2021-04-29 12:10 | OPERATIVE REPORT ---
DATE OF SERVICE: PREOPERATIVE DIAGNOSES: 1. A 30-year-old G3, P2 at 39 weeks gestation. 2. Previous section. 3. Gestational hypertension. POSTOPERATIVE DIAGNOSES: 1. A 30-year-old G3, P2 at 39 weeks gestation. 2. Previous section. 3. Gestational hypertension. PROCEDURE: Repeat low transverse section. SURGEON: George Laughlin DO ANESTHESIA: Spinal. ESTIMATED BLOOD LOSS: 500 mL. URINE OUTPUT: A 25 mL clear at the end of the procedure. FLUIDS: 2400 mL lactated Ringer's solution. FINDINGS: A live female weighing 6 pounds 6 ounces, Apgars of 8 and 9. Grossly normal appearing uterus, bilateral fallopian tubes and ovaries. SPECIMEN SENT: Placenta. INDICATIONS FOR PROCEDURE: This 30-year-old female is a patient who had sought care with Dr. Monroe in [place]. Her was uncomplicated with the exception of elevated blood pressure and started on metoprolol in the third trimester to control her blood pressure. This was done without any signs of proteinuria or toxemia or preeclampsia. Due to good blood pressure control, we decided to wait for delivery until 39 weeks. The patient desired repeat . Risks of the procedure were discussed with the patient in detail including risk of bleeding, infection, damage to surrounding structures including, but not limited to bowel, bladder, ureter, kidneys, possible need for operation, postoperative complications that may occur, risk from anesthesia, recovery timeframe, hospital stay and even . After everything was discussed with the patient in detail, consent was obtained. The patient was taken to the operating room. OPERATIVE REPORT IN DETAIL: Once in the operating room, spinal analgesia was found to be adequate, placed in supine position with leftward tilt, prepped and draped in normal sterile fashion. A timeout was performed, and anesthesia was tested. I then make a Pfannenstiel skin incision through the previously existing scar using a knife and carried down to the underlying fascia using Bovie cautery. Fascial incision extended laterally using Bovie cautery. Superior aspect of fascial incision was then grasped with Huan clamps, tented up and dissected off the underlying rectus muscles. Inferior aspect of the fascial incision was then grasped with Huan clamps, tented up and dissected off the underlying rectus muscles. Rectus muscles were then dissected down the midline using sharp dissection, which exposed the peritoneum, which I entered bluntly and extended using blunt traction. Mynor ring retractor was placed in the peritoneal incision, which offers excellent lateral sidewall retraction. I identified the lower uterine segment, which was found to be thinned out and make a low transverse incision to the vesicouterine peritoneum and bluntly dissected off the lower uterine segment, creating a bladder flap. I then proceeded with my myotomy until membranes were visualized, at which point I thinned uterine incision laterally and superiorly using bandage scissors. Amniotomy was performed in the process of doing this, clear fluid was noted. The was found in vertex presentation. With gentle fundal pressure, the 's head was elevated up to the incision where it delivered through the incision. The nares and oropharynx were bulb suctioned. A nuchal cord was reduced x1. Anterior and posterior shoulders were delivered. was then brought to the operative field with cord was doubly clamped and cut and was handed off to waiting nurses in attendance. A true knot was noted in the cord at that point, cord blood was collected, 3-vessel cord with intact placenta was delivered spontaneously thereafter. IV Pitocin was initiated to facilitate uterine contraction. Uterine fundus became firmer with bimanual massage. Uterus was then exteriorized and cleared of all endometrial clots and debris. I then proceeded with closing the uterine incision using 0 Vicryl suture in running locked fashion. Second layer of imbricating 0 Monocryl was placed. Excellent hemostasis was noted after doing this. I then placed the uterus back into the pelvis and copiously irrigated the pelvis using normal saline. Once again, there was no active bleeding noted from any of my dissection planes, I placed Interceed antiadhesive over my low transverse incision. I removed the Mynor ring retractor and proceeded with closing the peritoneum using 3-0 Vicryl suture in running fashion. The rectus muscle reapproximated using 3-0 Vicryl suture in interrupted fashion. The fascia was reapproximated using 0 Vicryl suture in running fashion. Subcutaneous tissue was reapproximated using 3-0 plain interrupted subcutaneous stitch and skin reapproximated using 4-0 Monocryl running subcuticular. Dermabond was applied to incision and sterile dressing with adhesive white tape. The patient tolerated the procedure well and sent to recovery in stable condition. Lap and sponge counts were correct at the end of the procedure. Instrument counts correct as well, 900 mg of clindamycin given preoperatively for infection prophylaxis. Job ID: [id number] DocumentID: [id number] Dictated Date: 04/29/2021 09:31:17 Order Packer Or Packager Date: 04/29/2021 12:09:45 Dictated By: GEORGE LAUGHLIN DO
[2021-04-29] MEDS: CATHETER FLUSH 10 ML SYR IV SCH ×3 (17:00→23:34)
[2021-04-29] MEDS: DOCUSATE SODIUM 100 MG (COLACE) CAP PO SCH ×2 (19:27→20:04)
[2021-04-29] MEDS ORDERED: ACETAMINOPHEN 500 MG TAB (TYLENOL) ONE (20:02)
[2021-04-29] MEDS: ACETAMINOPHEN 500 MG TAB (TYLENOL) PO PRN (20:04)
[2021-04-30] MEDS: KETOROLAC 30 MG/ML VIAL IV SCH (04:08)
[2021-04-30 04:27] VITALS: BP 128/64
[2021-04-30 05:45] LABS: BASOPHILS % (AUTO) 0 % (0-10); EOSINOPHILS # (AUTO) 0.1 10^3/uL (0.0-0.3); EOSINOPHILS % (AUTO) 2 % (0-10); HEMATOCRIT 29 % (35-52); HEMOGLOBIN 9.5 g/dL (11.5-16.0); LYMPHOCYTES % (AUTO) 13 % (12-44); MEAN CORPUSCULAR HEMOGLOBIN 30 pg (25-34); MEAN CORPUSCULAR HGB CONC 33 g/dL (32-36); MEAN CORPUSCULAR VOLUME 89 fL (80-99); MEAN PLATELET VOLUME 10.5 fL (9.0-12.2); MONOCYTES # (AUTO) 0.7 10^3/uL (0.0-1.0); MONOCYTES % (AUTO) 8 % (0-12); NEUTROPHILS # (AUTO) 6.3 10^3/uL (1.8-7.8); NEUTROPHILS % (AUTO) 77 % (42-75); PLATELET COUNT 202 10^3/uL (130-400); WHITE BLOOD COUNT 8.2 10^3/uL (4.3-11.0)
[2021-04-30] MEDS: ACETAMINOPHEN 500 MG TAB (TYLENOL) PO PRN ×3 (08:51→21:32)
[2021-04-30 08:52] VITALS: BP 126/77
--- NOTE | 2021-04-30 08:59 | Postpartum Progress Note ---
Note Note Day # 1 Subjective: Patient is without complaints. Ambulating, voiding. Tolerating a regular diet without nausea or vomiting. Normal lochia. Pain is well controlled with oral pain medications. Objective: Physical Exam: General - Alert and oriented, no apparent distress Abdomen - Soft, appropriately tender to palpation, non-distended, fundus firm at umbilicus Extremities - no edema, negative Saskia's bilaterally Incision: c/d/i Assessment: POD 1 RLTCS Acute blood loss anemia Plan: Routine care. Encourage breast feeding. Encourage ambulation. Ferrous sulfate supplementation. Plan for discharge tomorrow Vitals - Labs Vital Signs - I&O Vital Signs Date Time Temp Pulse Resp B/P (MAP) Pulse Ox O2 Delivery O2 Flow Rate FiO2 04/30/21 04:27 36.8 71 16 128/64 (85) 99 Room Air 04/29/21 23:38 36.5 62 16 122/78 (93) 98 Room Air 04/29/21 19:55 36.9 73 16 130/90 (103) 98 Room Air 04/29/21 14:30 37.1 57 16 125/66 (85) 98 Room Air 04/29/21 10:37 36.1 72 16 125/83 (97) 100 Room Air 04/29/21 10:01 36.1 67 16 138/70 (92) 100 Room Air 04/29/21 09:30 36.2 16 111/80 (90) 100 Room Air 04/29/21 09:15 36.4 16 94/64 (74) 100 Room Air 04/29/21 09:00 35.9 16 110/75 (87) 97 Room Air I & O 04/30/21 07:00 Intake Total 1050 ml Output Total 525 ml Balance 525 ml Labs Laboratory Tests 04/30/21 05:20: White Blood Count 8.2, Red Blood Count 3.22L, Hemoglobin 9.5L, Hematocrit 29L, Mean Corpuscular Volume 89, Mean Corpuscular Hemoglobin 30, Mean Corpuscular Hemoglobin Concent 33, Red Cell Distribution Width 14.0, Platelet Count 202, Mean Platelet Volume 10.5, Immature Granulocyte % (Auto) 1, Neutrophils (%) (Auto) 77H, Lymphocytes (%) (Auto) 13, Monocytes (%) (Auto) 8, Eosinophils (%) (Auto) 2, Basophils (%) (Auto) 0, Neutrophils # (Auto) 6.3, Lymphocytes # (Auto) 1.0, Monocytes # (Auto) 0.7, Eosinophils # (Auto) 0.1, Basophils # (Auto) 0.0, Immature Granulocyte # (Auto) 0.0 KEE LAUGHLIN DO Apr 30, 2021 8:59 am
[2021-04-30] MEDS: DOCUSATE SODIUM 100 MG (COLACE) CAP PO SCH ×2 (10:59→21:34)
[2021-04-30] MEDS: IBUPROFEN 600 MG (MOTRIN) TAB PO SCH ×3 (10:59→21:33)
[2021-04-30] MEDS: SIMETHICONE 80 MG (MYLICON) CHEW PO SCH ×4 (10:59→21:33)
[2021-04-30 16:06] VITALS: BP 164/84
[2021-04-30] MEDS ORDERED: BISACODYL 5 MG (DULCOLAX) TABLET PO PRN (19:30)
[2021-04-30] MEDS: CATHETER FLUSH 10 ML SYR IV SCH ×2 (20:44→21:34)
[2021-04-30 21:36] VITALS: BP 132/78
[2021-05-01] MEDS: ACETAMINOPHEN 500 MG TAB (TYLENOL) PO PRN (03:52)
[2021-05-01] MEDS: IBUPROFEN 600 MG (MOTRIN) TAB PO SCH ×2 (03:52→10:25)
[2021-05-01 03:56] VITALS: BP 123/65
[2021-05-01] MEDS: CATHETER FLUSH 10 ML SYR IV SCH (06:10)
[2021-05-01 07:54] VITALS: BP 132/80
[2021-05-01] MEDS: DOCUSATE SODIUM 100 MG (COLACE) CAP PO SCH (07:57)
--- NOTE | 2021-05-01 08:59 | Anesthesia-Regional Post-Op ---
Regional Patient Condition Mental Status: Alert, Oriented x3 Circulation: Same as Pre-Op Headache: Absent Sensation: Full Recovery Motor Block: Absent Post Op Complications Complications None Follow Up Care/Instructions Patient Instructions None needed. Anesthesia/Patient Condition Patient is doing well, no complaints, stable vital signs, no apparent adverse anesthesia problems. No complications reported per nursing. JUAN PABLO STEPHENS CRNA May 01, 2021 08:59
--- NOTE | 2021-05-01 09:05 | Postpartum Progress Note ---
Note Note Day # 2 Subjective: Patient is without complaints. Ambulating, voiding. Tolerating a regular diet without nausea or vomiting. Normal lochia. Pain is well controlled with oral pain medications. Objective: Physical Exam: General - Alert and oriented, no apparent distress Abdomen - Soft, appropriately tender to palpation, non-distended, fundus firm at umbilicus Extremities - no edema, negative Saskia's bilaterally Incision- c/d/i Assessment: POD 2 RLTCS Acute blood loss anemia Plan: Routine care. Encourage breast feeding. Encourage ambulation. Ferrous sulfate supplementation. Plan for discharge toDAY Vitals - Labs Vital Signs - I&O Vital Signs Date Time Temp Pulse Resp B/P (MAP) Pulse Ox O2 Delivery O2 Flow Rate FiO2 05/01/21 07:54 36.8 53 18 132/80 (97) 97 Room Air 05/01/21 03:56 36.5 82 18 123/65 (84) 98 Room Air 04/30/21 21:36 36.4 72 18 132/78 (96) 99 Room Air 04/30/21 16:06 36.9 82 18 164/84 (110) 99 Room Air KEE LAUGHLIN DO May 01, 2021 9:05 am
[2021-05-01] MEDS: SIMETHICONE 80 MG (MYLICON) CHEW PO SCH (10:24)
[2021-05-01 10:30] VITALS: BP 132/80
== END 2021-05-01 11:10 | disposition home or self-care (01) | DRG 787 ==
LOC: LDRP 05:55
PROVIDERS: ADMIT Obstetrics & Gynecology; ATTEND Obstetrics & Gynecology
PROC: 10D00Z1 Extraction of Products of Conception, Low, Open Approach (ICD-10-PCS; principal; 2021-04-29 07:34)
DX: O34.211 Maternal care for low transverse scar from previous cesarean delivery (principal); D62 Acute posthemorrhagic anemia; O13.4 Gestational [pregnancy-induced] hypertension without significant proteinuria, complicating childbirth; O90.81 Anemia of the puerperium; Z3A.39 39 weeks gestation of pregnancy; Z37.0 Single live birth; O69.2XX0 Labor and delivery complicated by other cord entanglement, with compression, not applicable or unspecified; O69.81X0 Labor and delivery complicated by cord around neck, without compression, not applicable or unspecified; Z88.7 Allergy status to serum and vaccine; Z88.0 Allergy status to penicillin; Z88.1 Allergy status to other antibiotic agents
CPT/HCPCS: 36415; 83033; 85025; 85460; 86850; 86900; 86901; 94664

== ENCOUNTER 2021-07-04 13:08 | Emergency (ER) | payer MEDICAID ==
[~2021-07-04] VITALS: Ht 165.1 cm; Wt 106.1 kg
[~2021-07-04 13:08] MED LIST changes: +ACHD5005 PO; +DOCU100C37 PO; +IBUP-844 PO
[2021-07-04 13:47] LABS: BASOPHILS % (AUTO) 1 % (0-10); EOSINOPHILS # (AUTO) 0.2 10^3/uL (0.0-0.3); EOSINOPHILS % (AUTO) 3 % (0-10); HEMATOCRIT 39 % (35-52); HEMOGLOBIN 12.3 g/dL (11.5-16.0); LYMPHOCYTES # (AUTO) 2.3 10^3/uL (1.0-4.0); LYMPHOCYTES % (AUTO) 32 % (12-44); MEAN CORPUSCULAR HEMOGLOBIN 28 pg (25-34); MEAN CORPUSCULAR HGB CONC 32 g/dL (32-36); MEAN CORPUSCULAR VOLUME 88 fL (80-99); MEAN PLATELET VOLUME 10.4 fL (9.0-12.2); MONOCYTES # (AUTO) 0.4 10^3/uL (0.0-1.0); MONOCYTES % (AUTO) 6 % (0-12); NEUTROPHILS # (AUTO) 4.2 10^3/uL (1.8-7.8); NEUTROPHILS % (AUTO) 59 % (42-75); PLATELET COUNT 301 10^3/uL (130-400); WHITE BLOOD COUNT 7.1 10^3/uL (4.3-11.0)
[2021-07-04 13:49] LABS: BILIRUBIN,URINE NEGATIVE (NEGATIVE); CLARITY,URINE TURBID; COLOR,URINE YELLOW; GLUCOSE, URINE (UA) NEGATIVE (NEGATIVE); KETONES,URINE NEGATIVE (NEGATIVE); LEUKOCYTE ESTERASE ,URINE NEGATIVE (NEGATIVE); NITRITE,URINE NEGATIVE (NEGATIVE); PROTEIN,URINE TRACE (NEGATIVE)
[2021-07-04 13:54] LABS: BACTERIA,URINE NEGATIVE /HPF; RBC,URINE >100 /HPF; SQUAMOUS EPITHELIAL CELL,UR 0-2 /HPF; WBC,URINE 0-2 /HPF
[2021-07-04 14:02] LABS: POTASSIUM 3.8 MMOL/L (3.6-5.0)
[2021-07-04 14:03] LABS: BILIRUBIN,TOTAL 0.3 MG/DL (0.1-1.0); CREATININE SERUM 0.81 MG/DL (0.60-1.30); TOTAL PROTEIN 7.3 GM/DL (6.4-8.2)
--- NOTE | 2021-07-04 14:32 | ED GU-Female ---
General Chief Complaint: - Reproductive Stated Complaint: VAGINAL BLEEDING Nursing Triage Note: PT AMBULATE TO ROOM [facility] WITH C/O VAGINAL BLEEDING SINCE THURSDAY. PT REPORTS SHE IS X2 MONTHS AFTER C SECTION. PT STATES SHE STARTED BLEEDING ON THURSDAY AND THE BLEEDING HAS GOTTEN HEAVIER. PT STATES SHE CONTACTED HER PCP AND WAS BEING SENT TO LAB FOR BLOOD WORK AND SHE STARTED GETTING LIGHT HEADED SO PCP INSTRUCTED HER TO COME TO ED. Source: patient Exam Limitations: no limitations History of Present Illness Date Seen by Provider: Jul 04, 2021 Time Seen by Provider: 13:15 Initial Comments Patient is a 30-year-old female who presents with female presents with heavy vaginal bleeding for the past 3 days. Patient is 2 months . She reports exhaustion dizziness lightheadedness and sleep deprivation. She reports passing golf ball sized vaginal clots. She contacted her OB and was instructed to come to the ED. Denies chest pain or shortness of breath. Timing/Duration: week Severity/Quality: other Location: other Radiation: other Activities at Onset: other Modifying Factors: Improves With Other Associated Symptoms: other Allergies and Home Medications Allergies Coded Allergies: Penicillins (Verified Allergy, Unknown, 04/22/21) Pertussis Vaccines (Verified Allergy, Unknown, Anaphylaxis, 04/22/21) SWELLED UP amoxicillin (Verified Allergy, Unknown, Anaphylaxis, 04/22/21) MOUTH SWELLED UP clavulanic acid (Verified Allergy, Unknown, Anaphylaxis, 04/22/21) MOUTH SWELLED UP Patient Home Medication List Home Medication List Reviewed: Yes Docusate Sodium (Docusate Sodium) 100 Mg Capsule, 100 MG PO BID PRN for CONSTIPATION-1ST LINE Prescribed by: KEE LAUGHLIN on 04/29/21 0939 Hydrocodone Bit/Acetaminophen (HYDROcodone/APAP 5 MG/325 MG TAB) 1 Tab Tab, 1-2 EA PO Q6HR PRN for PAIN-MODERATE (5-7) Prescribed by: KEE LAUGHLIN on 04/29/21 0940 Ibuprofen (Ibu) 600 Mg Tablet, 600 MG PO Q6HR Prescribed by: KEE LAUGHLIN on 04/29/21 0939 Vit No.124/Iron/FA ( Vitamin Tablet) 1 Each Tablet, 1 EACH PO, (Reported) Entered as Reported by: SUSAN STEPHENSON on 01/28/21 1058 Review of Systems Review of Systems Constitutional: see HPI EENTM: see HPI Respiratory: see HPI Gastrointestinal: see HPI Genitourinary: see HPI Musculoskeletal: see HPI Skin: see HPI Psychiatric/Neurological: See HPI Endocrine: See HPI Hematologic/Lymphatic: See HPI All Other Systemes Reviewed Negative Unless Noted: Yes Past Domdzva-Wckcej-Zkfmez Hx Patient Social History Tobacco Use?: Yes Smoking Status: Never a Smoker Smokeless Tobacco Frequency: Never a User Use of E-Cig and/or Vaping dev: No Use of E-Cig and/or Vaping Abdulaziz: Never a User Substance use?: No Alcohol Use?: No Pt feels they are or have been: No Seasonal Allergies Seasonal Allergies: No Past Medical History Surgery/Hospitalization HX: T&A , ganglian cyst, Surgeries: Yes ( X 1; RIGHT HAND GANGLION CYST REMOVAL) Adenoidectomy, Section, Tonsillectomy Respiratory: No Cardiac: No Neurological: No Reproductive Disorders: No Female Reproductive Disorders: Denies Sexually Transmitted Disease: No HIV/AIDS: No Genitourinary: No Gastrointestinal: No Musculoskeletal: No Endocrine: No HEENT: No Cancer: No Psychosocial: No Integumentary: No Blood Disorders: No Physical Exam Vital Signs Vital Signs - First Documented 07/04/21 13:12 Temp 36.3 Pulse 61 Resp 14 B/P (MAP) 155/87 (109) O2 Delivery Room Air Capillary Refill : Less Than 3 Seconds Height, Weight, BMI Height: '" Weight: lbs. oz. kg; 38.00 BMI Method: General Appearance: WD/WN, no apparent distress HEENT: normal ENT inspection, pharynx normal Neck: non-tender, full range of motion, supple Cardiovascular: regular rate, rhythm, no edema Respiratory: lungs clear Gastrointestinal: non tender, soft Focused Exam Sepsis Stage: Ruled Out Progress/Results/Core Measures Suspected Sepsis SIRS Temperature: Pulse: 61 Respiratory Rate: 14 Laboratory Tests 07/04/21 13:25: White Blood Count 7.1 Blood Pressure 155 /87 Mean: 109 Laboratory Tests 07/04/21 13:25: Creatinine 0.81, Platelet Count 301, Total Bilirubin 0.3 Results/Orders Lab Results Laboratory Tests Test 07/04/21 13:12 07/04/21 13:25 Range/Units Urine Color YELLOW Urine Clarity TURBID Urine pH 6.0 5-9 Urine Specific [place] >=1.030 1.016-1.022 Urine Protein TRACE H NEGATIVE Urine Glucose (UA) NEGATIVE NEGATIVE Urine Ketones NEGATIVE NEGATIVE Urine Nitrite NEGATIVE NEGATIVE Urine Bilirubin NEGATIVE NEGATIVE Urine Urobilinogen 0.2 < = 1.0 MG/DL Urine Leukocyte Esterase NEGATIVE NEGATIVE Urine RBC (Auto) 3+ H NEGATIVE Urine RBC >100 H /HPF Urine WBC 0-2 /HPF Urine Squamous Epithelial Cells 0-2 /HPF Urine Crystals NONE /LPF Urine Bacteria NEGATIVE /HPF Urine Casts NONE /LPF Urine Mucus NEGATIVE /LPF Urine Culture Indicated NO White Blood Count 7.1 4.3-11.0 10^3/uL Red Blood Count 4.39 3.80-5.11 10^6/uL Hemoglobin 12.3 11.5-16.0 g/dL Hematocrit 39 35-52 % Mean Corpuscular Volume 88 80-99 fL Mean Corpuscular Hemoglobin 28 25-34 pg Mean Corpuscular Hemoglobin Concent 32 32-36 g/dL Red Cell Distribution Width 13.6 10.0-14.5 % Platelet Count 301 130-400 10^3/uL Mean Platelet Volume 10.4 9.0-12.2 fL Immature Granulocyte % (Auto) 0 % Neutrophils (%) (Auto) 59 42-75 % Lymphocytes (%) (Auto) 32 12-44 % Monocytes (%) (Auto) 6 0-12 % Eosinophils (%) (Auto) 3 0-10 % Basophils (%) (Auto) 1 0-10 % Neutrophils # (Auto) 4.2 1.8-7.8 10^3/uL Lymphocytes # (Auto) 2.3 1.0-4.0 10^3/uL Monocytes # (Auto) 0.4 0.0-1.0 10^3/uL Eosinophils # (Auto) 0.2 0.0-0.3 10^3/uL Basophils # (Auto) 0.0 0.0-0.1 10^3/uL Immature Granulocyte # (Auto) 0.0 0.0-0.1 10^3/uL Sodium Level 136 135-145 MMOL/L Potassium Level 3.8 3.6-5.0 MMOL/L Chloride Level 102 98-107 MMOL/L Carbon Dioxide Level 23 21-32 MMOL/L Anion Gap 11 5-14 MMOL/L Blood Urea Nitrogen 12 7-18 MG/DL Creatinine 0.81 0.60-1.30 MG/DL Estimat Glomerular Filtration Rate 99 BUN/Creatinine Ratio 15 Glucose Level 86 70-105 MG/DL Calcium Level 9.0 8.5-10.1 MG/DL Corrected Calcium 9.0 8.5-10.1 MG/DL Total Bilirubin 0.3 0.1-1.0 MG/DL Aspartate Amino Transf (AST/SGOT) 19 5-34 U/L Alanine Aminotransferase (ALT/SGPT) 20 0-55 U/L Alkaline Phosphatase 82 40-136 U/L Total Protein 7.3 6.4-8.2 GM/DL Albumin 4.0 3.2-4.5 GM/DL My Orders Orders - RAVI CATHERINE DO Cbc With Automated Diff (07/04/21 13:40) Comprehensive Metabolic Panel (07/04/21 13:40) Urinalysis (07/04/21 13:40) Urine Bedside (07/04/21 13:40) Vital Signs/I&O 07/04/21 13:12 Temp 36.3 Pulse 61 Resp 14 B/P (MAP) 155/87 (109) O2 Delivery Room Air Capillary Refill : Less Than 3 Seconds Blood Pressure Mean: 109 Departure Communication (Admissions) Lab work reviewed and reassuring. Symptoms are consistent with post menorrhagia. I suspect the patient's dizziness fatigue is related to his ongoing sleep deprivation. Recommendations are supportive care with rest and MAINTENANCE ANALYST follow-up. Impression Primary Impression: Menorrhagia Additional Impression: Sleep deprivation Disposition: 01 HOME, SELF-CARE Condition: Stable Departure-Patient Inst. Decision time for Depature: 14:31 Referrals: DANIEL RUBIO MD (PCP/Family) Primary Care Physician Patient Instructions: Heavy Periods ED Add. Discharge Instructions: Your symptoms are consistent with a heavy menstrual bleeding in the period and ongoing sleep deprivation. Please take the next 2 days to focus on catch-up sleep and follow-up with your MAINTENANCE ANALYST next week if symptoms persist All discharge instructions reviewed with patient and/or family. Voiced understanding. RAVI CATHERINE DO Jul 04, 2021 14:32
[2021-07-04 14:45] VITALS: BP 141/84
== END 2021-07-04 14:45 | disposition home or self-care (01) ==
LOC: EDUNIT# 13:08 → ER FS 13:09
DX: N92.0 Excessive and frequent menstruation with regular cycle (principal); Z72.820 Sleep deprivation; Z72.0 Tobacco use
CPT/HCPCS: 36415; 80053; 81000; 84703; 85025

== ENCOUNTER 2021-12-13 15:18 | Emergency (ER) | payer MEDICAID ==
[~2021-12-13] VITALS: Ht 165 cm; Wt 108.0 kg
[2021-12-13 15:26] VITALS: BP 137/115
--- NOTE | 2021-12-13 15:32 | ED Lower Extremity ---
General Chief Complaint: Lower Extremity Stated Complaint: L FOOT PAIN/SWELLING Source: patient History of Present Illness Date Seen by Provider: Dec 13, 2021 Time Seen by Provider: 15:21 Initial Comments 31-year-old female presenting with pain to her left foot. She states started her daughter accidentally dropped a sack with cans in it on her left foot. She had iced it overnight and took Ibuprofen. Then today she had to work at [employer] and was on her feet all day. She felt the foot was swelling and becoming more painful and bruised. She took Ibuprofen at 1300. She came to the ED for xrays and evaluation due to pain and swelling. She felt it was more bruised earlier as well. Onset: yesterday Severity: severe Pain/Injury Location: left foot Method of Injury: direct blow Modifying Factors: Improves With Cold Therapy; Worse With Movement Allergies and Home Medications Allergies Coded Allergies: Penicillins (Verified Allergy, Unknown, 04/22/21) Pertussis Vaccines (Verified Allergy, Unknown, Anaphylaxis, 04/22/21) SWELLED UP amoxicillin (Verified Allergy, Unknown, Anaphylaxis, 04/22/21) MOUTH SWELLED UP clavulanic acid (Verified Allergy, Unknown, Anaphylaxis, 04/22/21) MOUTH SWELLED UP Patient Home Medication List Home Medication List Reviewed: Yes Docusate Sodium (Docusate Sodium) 100 Mg Capsule, 100 MG PO BID PRN for CONSTIPATION-1ST LINE Prescribed by: KEE LAUGHLIN on 04/29/21 0939 Hydrocodone Bit/Acetaminophen (HYDROcodone/APAP 5 MG/325 MG TAB) 1 Tab Tab, 1-2 EA PO Q6HR PRN for PAIN-MODERATE (5-7) Prescribed by: KEE LAUGHLIN on 04/29/21 0940 Ibuprofen (Ibu) 600 Mg Tablet, 600 MG PO Q6HR Prescribed by: KEE LAUGHLIN on 04/29/21 0939 Vit No.124/Iron/FA ( Vitamin Tablet) 1 Each Tablet, 1 EACH PO, (Reported) Entered as Reported by: SUSAN STEPHENSON on 01/28/21 1057 Review of Systems Constitutional: No chills, No fever EENTM: no symptoms reported Respiratory: no symptoms reported Cardiovascular: no symptoms reported Gastrointestinal: no symptoms reported Genitourinary: no symptoms reported Musculoskeletal: see HPI Skin: see HPI, change in color (mild bruising to top of left foot) Psychiatric/Neurological: Denies Numbness Past Aokywhu-Xywqig-Boyugj Hx Seasonal Allergies Seasonal Allergies: No Past Medical History Surgery/Hospitalization HX: T&A , ganglian cyst, Surgeries: Yes ( X 1; RIGHT HAND GANGLION CYST REMOVAL) Adenoidectomy, Section, Tonsillectomy Respiratory: No Cardiac: No Neurological: No Reproductive Disorders: No Female Reproductive Disorders: Denies Sexually Transmitted Disease: No HIV/AIDS: No Genitourinary: No Gastrointestinal: No Musculoskeletal: No Endocrine: No HEENT: No Cancer: No Psychosocial: No Integumentary: No Blood Disorders: No Physical Exam Vital Signs Vital Signs - First Documented 12/13/21 15:26 Temp 36.2 Pulse 120 B/P (MAP) 137/115 (122) Pulse Ox 98 Capillary Refill : Height, Weight, BMI Height: '" Weight: lbs. oz. kg; 38.00 BMI Method: General Appearance: WD/WN, no apparent distress Cardiovascular: normal peripheral pulses Feet: left foot ecchymosis (faint bruising to top of foot), left foot pain, left foot soft tissue tenderness, left foot swelling (mild swelling to top of foot) Neurologic/Tendon: normal sensation, normal motor functions, normal tendon functions Neurologic/Psychiatric: alert, oriented x 3 Skin: warm/dry Progress/Results/Core Measures Results/Orders My Orders Orders - KITTY HASSAN MD Ice: Apply To Affected Area (12/13/21 15:25) Elevate Affected Extremity (12/13/21 15:25) Foot 3 View Left (12/13/21 15:25) Post-Op Shoe (12/13/21 15:52) Vital Signs/I&O 12/13/21 15:26 Temp 36.2 Pulse 120 B/P (MAP) 137/115 (122) Pulse Ox 98 Progress Progress Note #1: Progress Note Ordered x-rays as well as ice and elevation to help with pain since she just took ibuprofen at 1 PM. Differential diagnosis includes foot contusion, foot fracture, bone bruise. Progress Note #2: Progress Note No acute bony abnormality or fracture seen on x-rays. Treat symptomatically. Counseled on follow-up and return precautions. Advised to ice and elevate foot. Use Post op shoe for comfort and support and to limit movement of the foot so it can rest and heal. Diagnostic Imaging Diagonstic Imaging: Xray Plain Films/CT/US/NM/MRI: other (foot) Comments [facility] [place] NAME: SHAINA ARRIAZA [facility] REC#: [id number] PT STATUS: REG ER : 1990 PHYSICIAN: KITTY HASSAN MD ADMIT DATE: 12/13/21/ER FS Draft Date of Exam:12/13/21 FOOT 3 VIEW LEFT INDICATION: Left foot pain secondary to injury. AP, oblique, and lateral views of the left foot are obtained. FINDINGS: No fracture or acute bony abnormality is seen. Joint spaces are unremarkable. IMPRESSION: Negative left foot. Dictated on workstation # [id number] Dict: 12/13/21 1532 Trans: 12/13/21 1534 [id number] Interpreted by: JIGAR LOPEZ MD Electronically signed by: Reviewed: Reviewed by Me Departure Impression Primary Impression: Contusion of left foot, initial encounter Additional Impression: Left foot pain Disposition: HOME, SELF-CARE Condition: Stable Departure-Patient Inst. Decision time for Depature: 15:44 Referrals: DANIEL RUBIO MD (PCP/Family) Primary Care Physician Patient Instructions: Minor Contusion ED, Metatarsalgia (DC) Add. Discharge Instructions: No fracture or broken bone seen on xrays. Ice and elevate your foot to help with pain and swelling. Continue Ibuprofen 800 mg every 8 hours as needed for pain and swelling. If not improving over the next 5-7 days check with clinic for continued concerns. All discharge instructions reviewed with patient and/or family. Voiced understanding. Work/School Note: Work Release Form Date Seen in the Emergency Department: Dec 13, 2021 Return to Work: Dec 14, 2021 Restrictions: No Sports-Until Released Other Restrictions Listed Below: Off work Thursday 12/14 if worsening pain. KITTY HASSAN MD Dec 13, 2021 15:32
--- NOTE | 2021-12-13 15:35 | Diagnostic Imaging Report ---
INDICATION: Left foot pain secondary to injury. AP, oblique, and lateral views of the left foot are obtained. FINDINGS: No fracture or acute bony abnormality is seen. Joint spaces are unremarkable. IMPRESSION: Negative left foot. Dictated by: Dictated on workstation # [id number]
== END 2021-12-13 16:00 | disposition home or self-care (01) ==
LOC: EDUNIT# 15:18 → ER FS 15:19
DX: S90.32XA Contusion of left foot, initial encounter (principal); W20.8XXA Other cause of strike by thrown, projected or falling object, initial encounter
CPT/HCPCS: 73630

== ENCOUNTER 2022-04-27 16:32 | Emergency (ER) | payer MEDICAID ==
[2022-04-27 16:46] VITALS: BP 129/81
[2022-04-27] MEDS ORDERED: methylPREDNISolone 80 MG/ML (DEPO MEDROL) VIAL IM STA (17:03)
--- NOTE | 2022-04-27 17:16 | ED Cough/URI ---
General Chief Complaint: Cough/Cold/Flu Symptoms Stated Complaint: FEVER, TROUBLE BREATHING,HEADACHE Nursing Triage Note: Patient presents to the ED with c/o cough, fever, headache, and chest pain with cough. States her kids tested positive for RSV and Strep 2 weeks ago. Her symptoms began on Thursday. She was seen at walk in care Thursday and Thursday testing negative for strep, COVID, and Flu. Patient reports her symptoms have persisted. Source: patient History of Present Illness Date Seen by Provider: Apr 27, 2022 Time Seen by Provider: 16:44 Initial Comments 31-year-old female presenting with complaints of fever, cough, headache, sore throat, chest pain with cough, productive cough. She had recent exposure to RSV and strep within the last 2 weeks with her children. She had gone to urgent care Thursday and then yesterday and had testing for strep and COVID and flu. She states that they were negative both times. She has been more short of breath in the last 2 days. She has been taking Robitussin [id number] to help with loosening her cough. At night she takes a severe sinus and cold medicine. She felt like she was continued on worsen and her symptoms were persisting so she came to the emergency department. Timing/Duration: getting worse (over the last week) Severity/Quality: moderate, productive cough Prior Episodes/Possible Cause: no prior episodes Modifying Factors: Worse With Activity, Worse With Coughing Associated Symptoms: chest pain/soreness (from coughing), cough, fever/chills, headache, muscle aches, nasal congestion, nasal drainage, shortness of breath, sore throat Allergies and Home Medications Allergies Coded Allergies: Penicillins (Verified Allergy, Unknown, 04/22/21) Pertussis Vaccines (Verified Allergy, Unknown, Anaphylaxis, 04/22/21) SWELLED UP amoxicillin (Verified Allergy, Unknown, Anaphylaxis, 04/22/21) MOUTH SWELLED UP clavulanic acid (Verified Allergy, Unknown, Anaphylaxis, 04/22/21) MOUTH SWELLED UP Patient Home Medication List Home Medication List Reviewed: Yes Docusate Sodium (Docusate Sodium) 100 Mg Capsule, 100 MG PO BID PRN for CONSTIPATION-1ST LINE Prescribed by: KEE LAUGHLIN on 04/29/21 0939 Hydrocodone Bit/Acetaminophen (HYDROcodone/APAP 5 MG/325 MG TAB) 1 Tab Tab, 1-2 EA PO Q6HR PRN for PAIN-MODERATE (5-7) Prescribed by: KEE LAUGHLIN on 04/29/21 0940 Ibuprofen (Ibu) 600 Mg Tablet, 600 MG PO Q6HR Prescribed by: KEE LAUGHLIN on 04/29/21 0939 Vit No.124/Iron/FA ( Vitamin Tablet) 1 Each Tablet, 1 EACH PO, (Reported) Entered as Reported by: SUSAN STEPHENSON on 01/28/21 1058 Review of Systems Review of Systems Constitutional: chills, fever EENTM: see HPI Respiratory: see HPI Cardiovascular: see HPI Gastrointestinal: no symptoms reported Genitourinary: no symptoms reported Musculoskeletal: no symptoms reported Skin: No rash Psychiatric/Neurological: Headache Past Kjlaorp-Pgodxy-Uwrusn Hx Patient Social History Tobacco Use?: No Substance use?: No Alcohol Use?: No Pt feels they are or have been: No Seasonal Allergies Seasonal Allergies: No Past Medical History Surgery/Hospitalization HX: T&A , ganglian cyst, Surgeries: Yes ( X 1; RIGHT HAND GANGLION CYST REMOVAL) Adenoidectomy, Section, Tonsillectomy Respiratory: No Cardiac: No Neurological: No Reproductive Disorders: No Female Reproductive Disorders: Denies Sexually Transmitted Disease: No HIV/AIDS: No Genitourinary: No Gastrointestinal: No Musculoskeletal: No Endocrine: No HEENT: No Cancer: No Psychosocial: No Integumentary: No Blood Disorders: No Physical Exam Vital Signs - First Documented 04/27/22 16:46 Temp 37.5 Pulse 100 Resp 16 B/P (MAP) 129/81 (97) Pulse Ox 99 O2 Delivery Room Air Capillary Refill : Less Than 3 Seconds Height: '" Weight: lbs. oz. kg; 39.00 BMI Method: General Appearance: WD/WN, no apparent distress HEENT: PERRL/EOMI, TMs normal, pharynx normal; No photophobia, No tonsillar exudate Neck: non-tender, full range of motion, supple Respiratory: chest non-tender, no respiratory distress, no accessory muscle use, rhonchi Cardiovascular: normal peripheral pulses, regular rate, rhythm Gastrointestinal: normal bowel sounds, non tender, soft, no pulsatile mass Extremities: normal range of motion, non-tender, normal capillary refill Neurologic/Psychiatric: alert, oriented x 3 Skin: normal color, warm/dry Progress/Results/Core Measures Suspected Sepsis SIRS Temperature: Pulse: 100 Respiratory Rate: 16 Blood Pressure 129 /81 Mean: 97 Results/Orders My Orders Orders - KITTY HASSAN MD Dexamethasone Injection (Decadron Inje (04/27/22 17:03) Methylprednisolone Acetate Inj (Depo-Med (04/27/22 17:03) Chest Pa/Lat (2 View) (04/27/22 17:04) Albuterol Inhaler (Albuterol) (04/27/22 18:00) Nursing Communication (Order) (04/27/22 17:50) Vital Signs/I&O 04/27/22 16:46 Temp 37.5 Pulse 100 Resp 16 B/P (MAP) 129/81 (97) Pulse Ox 99 O2 Delivery Room Air Capillary Refill : Less Than 3 Seconds Blood Pressure Mean: 97 Progress Note #1: Progress Note Since she just had testing for COVID, influenza, strep will defer repeating that. Obtain 2 view chest x-ray to look for signs of pneumonia or infiltrate. Administer Decadron 10 mg IM with Depo-Medrol 80 mg IM for cough and shortness of breath. Progress Note #2: Progress Note Chest xray 2 view films negative for acute process. Will offer inhaler to help with shortness of breath and allow the steroid shots to help with cough and inflammation. Encourage rest, fluids, Vitamin C to help fight infection. Check with PCP if still not improving. Diagnostic Imaging Diagonstic Imaging: Xray Plain Films/CT/US/NM/MRI: chest Comments NAME: SHAINA ARRIAZA [facility] REC#: [id number] PT STATUS: REG ER : 1990 PHYSICIAN: KITTY HASSAN MD ADMIT DATE: 04/27/22/ER FS Draft Date of Exam:04/27/22 CHEST PA/LAT (2 VIEW) EXAMINATION: Chest 2 view. HISTORY: Cough. Fever. COMPARISON: None available. FINDINGS: The lung volumes are normal. No focal consolidation is seen. No large pleural effusion or pneumothorax is seen. The cardiomediastinal silhouette is normal in size and contour. No acute osseous abnormality is seen. IMPRESSION: No acute pleuroparenchymal process. Dictated on workstation # [id number] Dict: 04/27/22 1731 Trans: 04/27/223 [facility] [id number] Interpreted by: ANDREA WADE DO Electronically signed by: Reviewed: Reviewed by Me Departure Impression Primary Impression: Upper respiratory infection with cough and congestion Additional Impression: Influenza-like symptoms Disposition: HOME, SELF-CARE Condition: Stable Departure-Patient Inst. Decision time for Depature: 17:38 Referrals: DANIEL RUBIO MD (PCP/Family) Primary Care Physician Patient Instructions: Cough, Adult ED, How to Use Your Metered Dose Inhaler (Adults), How to Use a Spacer, Upper Respiratory Infection ED, Viral Syndrome (DC) Add. Discharge Instructions: Continue to stay well hydrated and drink plenty of fluids Continue with Robitussin to help loosen cough and congestion. The steroid shots from tonight will help with cough and chest tightness. Use albuterol inhaler with spacer by taking 2 puffs every 4-6 hours as needed for cough and shortness of breath. If not improving then check with clinic for continued concerns. All discharge instructions reviewed with patient and/or family. Voiced understanding. Work/School Note: Work Release Form Date Seen in the Emergency Department: Apr 27, 2022 Return to Work: Apr 29, 2022 Restrictions: Return-No Fever (24hrs) KITTY HASSAN MD Apr 27, 2022 17:16
--- NOTE | 2022-04-27 17:33 | Diagnostic Imaging Report ---
EXAMINATION: Chest 2 view. HISTORY: Cough. Fever. COMPARISON: None available. FINDINGS: The lung volumes are normal. No focal consolidation is seen. No large pleural effusion or pneumothorax is seen. The cardiomediastinal silhouette is normal in size and contour. No acute osseous abnormality is seen. IMPRESSION: No acute pleuroparenchymal process. Dictated by: Dictated on workstation # [id number]
[2022-04-27] MEDS ORDERED: RT-ALBUTEROL HFA 8.5 GM INHALER IH SCH (18:00)
== END 2022-04-27 17:56 | disposition home or self-care (01) ==
LOC: EDUNIT# 16:32 → ER FS 16:34
DX: J06.9 Acute upper respiratory infection, unspecified (principal); Z28.310 Unvaccinated for COVID-19
CPT/HCPCS: 71046; 94640

== ENCOUNTER → 2022-04-30 | Outpatient (CLI) | payer MEDICAID | LOC: LAB FS 14:41 | PROVIDERS: ATTEND Registered Nurse Emergency | DX: Z33.1 Pregnant state, incidental (principal) | CPT/HCPCS: 36415; 84702 ==

== ENCOUNTER 2022-05-22 16:44 | Emergency (ER) | payer MEDICAID ==
[~2022-05-22] VITALS: Ht 165 cm; Wt 110.0 kg
[2022-05-22 16:58] VITALS: BP 143/70
--- NOTE | 2022-05-22 16:59 | ED Cough/URI ---
General Chief Complaint: Cough/Cold/Flu Symptoms Stated Complaint: FEVER,TROUBLE BREATHING,COUGH Source: patient History of Present Illness Date Seen by Provider: May 22, 2022 Time Seen by Provider: 16:49 Initial Comments 31-year-old female presenting with concerns about continued cough and breathing issues. She states that she recently found out that she is and thinks that she is approximately 15 weeks along. This is her fourth . She had influenza within the last 2 to 3 weeks as well. She was seen here in the emergency department by myself on 27 April and at that time she had reported negative testing for COVID, influenza, strep. A chest x-ray was obtained and did not show any acute pulmonary abnormality. After that visit she states that she was tested for influenza again and was positive. She has been using an inhaler and continues to have cough and some drainage. She states that she was trying to use Robitussin to help with her cough but it was not making a big difference. When she was found to be the clinic had told her to stop taking the Tessalon Perles. She has been getting lightheaded with exertion and work. It seems to be worse with the cold weather. She reports a fever up to 101 F 3 days ago. She had called Dr. Rubio's clinic but they did not have any openings to see her today. She asked her work if they could change her position at least temporarily while she was having difficulty breathing. She denies having any vaginal bleeding, discharge, abdominal pain. Timing/Duration: constant (Over the last month) Severity/Quality: moderate, dry cough Prior Episodes/Possible Cause: no prior episodes Modifying Factors: Worse With Coughing, Worse With Lying Down Associated Symptoms: chest pain/soreness (Soreness in her chest from coughing so much), cough, lightheadedness, nasal drainage, shortness of breath, sore throat Allergies and Home Medications Allergies Coded Allergies: Penicillins (Verified Allergy, Unknown, 04/22/21) Pertussis Vaccines (Verified Allergy, Unknown, Anaphylaxis, 04/22/21) SWELLED UP amoxicillin (Verified Allergy, Unknown, Anaphylaxis, 04/22/21) MOUTH SWELLED UP clavulanic acid (Verified Allergy, Unknown, Anaphylaxis, 04/22/21) MOUTH SWELLED UP Patient Home Medication List Home Medication List Reviewed: Yes Docusate Sodium (Docusate Sodium) 100 Mg Capsule, 100 MG PO BID PRN for CONSTIPATION-1ST LINE Prescribed by: KEE LAUGHLIN on 04/29/21 09 Hydrocodone Bit/Acetaminophen (HYDROcodone/APAP 5 MG/325 MG TAB) 1 Tab Tab, 1-2 EA PO Q6HR PRN for PAIN-MODERATE (5-7) Prescribed by: KEE LAUGHLIN on 04/29/21 09 Ibuprofen (Ibu) 600 Mg Tablet, 600 MG PO Q6HR Prescribed by: KEE LAUGHLIN on 04/29/21 09 Vit No.124/Iron/FA ( Vitamin Tablet) 1 Each Tablet, 1 EACH PO, (Reported) Entered as Reported by: SUSAN STEPHENSON on 01/28/21 1058 Review of Systems Review of Systems Constitutional: see HPI EENTM: see HPI Respiratory: see HPI Cardiovascular: see HPI Gastrointestinal: No abdominal pain, No nausea, No vomiting Genitourinary: No dysuria, No frequency Musculoskeletal: no symptoms reported Skin: No rash Psychiatric/Neurological: Denies Headache Past Bgfodjz-Yqjcyi-Somyiq Hx Patient Social History Tobacco Use?: No Use of E-Cig and/or Vaping dev: No Substance use?: No Alcohol Use?: No Seasonal Allergies Seasonal Allergies: No Past Medical History Surgery/Hospitalization HX: T&A , ganglian cyst, Surgeries: Yes ( X 1; RIGHT HAND GANGLION CYST REMOVAL) Adenoidectomy, Section, Tonsillectomy Respiratory: No Cardiac: No Neurological: No Reproductive Disorders: No Female Reproductive Disorders: Denies Sexually Transmitted Disease: No HIV/AIDS: No Genitourinary: No Gastrointestinal: No Musculoskeletal: No Endocrine: No HEENT: No Cancer: No Psychosocial: No Integumentary: No Blood Disorders: No Physical Exam Vital Signs - First Documented 05/22/22 16:58 Temp 36.2 Pulse 60 Resp 18 B/P (MAP) 143/70 (94) Pulse Ox 100 O2 Delivery Room Air Capillary Refill : Height: '" Weight: lbs. oz. kg; 39.00 BMI Method: General Appearance: WD/WN, no apparent distress HEENT: PERRL/EOMI, TMs normal; No photophobia; pharyngeal erythema; No tonsillar exudate Neck: non-tender, full range of motion, supple, normal inspection Respiratory: chest non-tender, lungs clear, normal breath sounds, no respiratory distress, no accessory muscle use Cardiovascular: normal peripheral pulses, regular rate, rhythm Gastrointestinal: normal bowel sounds, non tender, soft, no pulsatile mass Extremities: normal range of motion, non-tender, normal capillary refill Neurologic/Psychiatric: alert, oriented x 3 Skin: normal color, warm/dry; No rash Progress/Results/Core Measures Suspected Sepsis SIRS Temperature: Pulse: Respiratory Rate: Blood Pressure / Mean: Results/Orders Vital Signs/I&O 05/22/22 16:58 Temp 36.2 Pulse 60 Resp 18 B/P (MAP) 143/70 (94) Pulse Ox 100 O2 Delivery Room Air Capillary Refill : Progress Note : Progress Note Reassured patient that her oxygen saturation was 100% on room air and her lung exam was benign. Reviewed possible options of using a steroid to help with her breathing and cough versus continue with the symptomatic care she is already doing. Advised that she could take the Tessalon Perles to help with her cough at bedtime if she felt she needed it. Reassured her that the chest x-ray from April 27 did not show any acute abnormality. Counseled that while especially it could take longer for her breathing to resolve from the recent influenza. Not seeing any concerning or worrisome issues on her exam and vital signs currently. Counseled to check back with Dr. Rubio for continued concerns. She may need a short steroid burst or pulmonary function testing if things persist or continue. Reassured patient that she likely just needs more time to let her lungs heal from the recent influenza infection especially while being . At this time she did not want to take any additional medicine and wanted to wait until she could follow-up with Dr. Rubio. Departure Impression Primary Impression: Shortness of breath with Additional Impressions: Post-viral reactive airway disease Incidental confirmed Disposition: HOME, SELF-CARE Condition: Stable Departure-Patient Inst. Decision time for Depature: 17:42 Referrals: DANIEL RUBIO MD (PCP) Primary Care Physician Patient Instructions: How to Use a Metered Dose Inhaler ED, Shortness of Breath, Adult ED Add. Discharge Instructions: Continue to drink plenty of fluids and stay well-hydrated. Continue to use humidifier at the bedside to help with congestion and cough. Consider taking the Tessalon Perles at bedtime to help with your cough she could sleep better. Check back with the clinic to see if they could fit you in before your scheduled appointment on June 04. Your shortness of breath and cough and symptoms are likely still related to body healing from the recent influenza in addition to being . This can take several weeks or months to completely resolve. Working with Dr. Rubio will help to manage your symptoms. She may have you take a pulmonary function test or try a short burst of steroids for your cough and shortness of breath if it is not improving. Work with her to see what would be best during your . All discharge instructions reviewed with patient and/or family. Voiced understan ding. KITTY HASSAN MD May 22, 2022 16:59
== END 2022-05-22 17:49 | disposition home or self-care (01) ==
LOC: EDUNIT# 16:44 → ER FS 16:45
DX: O99.512 Diseases of the respiratory system complicating pregnancy, second trimester (principal); J45.909 Unspecified asthma, uncomplicated; Z28.310 Unvaccinated for COVID-19; Z3A.15 15 weeks gestation of pregnancy
CPT/HCPCS: 99281

== ENCOUNTER 2022-07-09 11:13 | Inpatient (IN) | payer MEDICAID ==
[2022-07-09] VITALS (13 sets, daily range): BP systolic 87–141; BP diastolic 53–98
[~2022-07-09] VITALS: Ht 165.1 cm; Wt 108.5 kg
[2022-07-09] MEDS ORDERED: FAMOTIDINE 20MG/2ML IV (PEPCID) IV ONE (11:45)
[2022-07-09] MEDS ORDERED: LACTATED RINGERS 1,000 ML IV PRN (11:45)
[2022-07-09] MEDS ORDERED: CITRIC ACID/SOB CIT (BICITRA) 30 ML UDC PO ONE (11:45)
[2022-07-09] MEDS ORDERED: METOCLOPRAMIDE INJ 10 MG/2 ML (REGLAN) IV ONE (11:45)
[2022-07-09] MEDS ORDERED: METOCLOPRAMIDE INJ 10 MG/2 ML (REGLAN) ONE (11:54)
[2022-07-09 12:23] LABS: BILIRUBIN,URINE NEGATIVE (NEGATIVE); CLARITY,URINE CLEAR; COLOR,URINE YELLOW; GLUCOSE, URINE (UA) NEGATIVE (NEGATIVE); KETONES,URINE 2+ (NEGATIVE); LEUKOCYTE ESTERASE ,URINE NEGATIVE (NEGATIVE); NITRITE,URINE NEGATIVE (NEGATIVE); PROTEIN,URINE NEGATIVE (NEGATIVE)
[2022-07-09 12:38] LABS: BASOPHILS % (AUTO) 0 % (0-10); EOSINOPHILS # (AUTO) 0.1 10^3/uL (0.0-0.3); EOSINOPHILS % (AUTO) 1 % (0-10); HEMATOCRIT 35 % (35-52); HEMOGLOBIN 11.8 g/dL (11.5-16.0); LYMPHOCYTES # (AUTO) 1.3 10^3/uL (1.0-4.0); LYMPHOCYTES % (AUTO) 19 % (12-44); MEAN CORPUSCULAR HEMOGLOBIN 30 pg (25-34); MEAN CORPUSCULAR HGB CONC 34 g/dL (32-36); MEAN CORPUSCULAR VOLUME 89 fL (80-99); MEAN PLATELET VOLUME 10.5 fL (9.0-12.2); MONOCYTES # (AUTO) 0.4 10^3/uL (0.0-1.0); MONOCYTES % (AUTO) 6 % (0-12); NEUTROPHILS # (AUTO) 4.7 10^3/uL (1.8-7.8); NEUTROPHILS % (AUTO) 73 % (42-75); PLATELET COUNT 230 10^3/uL (130-400); WHITE BLOOD COUNT 6.5 10^3/uL (4.3-11.0)
[2022-07-09 12:40] LABS: BACTERIA,URINE FEW /HPF; RBC,URINE RARE /HPF; SQUAMOUS EPITHELIAL CELL,UR 0-2 /HPF
[2022-07-09] MEDS ORDERED: ONDANSETRON 4 MG/2 ML (SDV) Z0FRAN ONE (12:45)
[2022-07-09] MEDS ORDERED: ceFAZolin INJECTION 2,000 MG in NS (IVPB) 50 ML IV ONE (12:45)
[2022-07-09] MEDS ORDERED: OXYTOCIN PRE-MIX DRIP 1,000 ML IV ONE (12:45)
[2022-07-09] MEDS ORDERED: fentaNYL INJ 100 MCG/2 ML AMP ONE (12:45)
--- NOTE | 2022-07-09 12:54 | History & Physical-OB ---
OB - Chief Complaint & HPI Date/Time Date of Admission: Date of Admission: Jul 09, 2022 at 11:13 Date seen by a Provider: Jul 09, 2022 Time Seen by a Provider: 10:30 Chief Complaint/History OB-Reason for Admission/Chief: Section Hx : 3 Hx Para: 3 Expected Date of Delivery: Nov 10, 2022 Gestational Age in Weeks: 22 Indication for : desires repeat Other reason for admission: demise at 22 weeks, history of 2 prior cesareans Admission Nurse Assessment Rev: Yes Allergies and Home Medications Allergies Coded Allergies: Penicillins (Verified Allergy, Unknown, 04/22/21) Pertussis Vaccines (Verified Allergy, Unknown, Anaphylaxis, 04/22/21) SWELLED UP amoxicillin (Verified Allergy, Unknown, Anaphylaxis, 04/22/21) MOUTH SWELLED UP clavulanic acid (Verified Allergy, Unknown, Anaphylaxis, 04/22/21) MOUTH SWELLED UP Patient Home Medication List Home Medication List Reviewed: Yes Docusate Sodium (Docusate Sodium) 100 Mg Capsule, 100 MG PO BID PRN for CONSTIPATION-1ST LINE Prescribed by: KEE LAUGHLIN on 04/29/21 0939 Hydrocodone Bit/Acetaminophen (HYDROcodone/APAP 5 MG/325 MG TAB) 1 Tab Tab, 1-2 EA PO Q6HR PRN for PAIN-MODERATE (5-7) Prescribed by: KEE LAUGHLIN on 04/29/21 0940 Ibuprofen (Ibu) 600 Mg Tablet, 600 MG PO Q6HR Prescribed by: KEE LAUGHLIN on 04/29/21 0939 Vit No.124/Iron/FA ( Vitamin Tablet) 1 Each Tablet, 1 EACH PO, (Reported) Entered as Reported by: SUSAN STEPHENSON on 01/28/21 1058 OB - History Hx of Present Care: Yes Ultrasounds: Abnormal US findings ( demise noted) Obstetrical Complications: None Medical Complications: None Patient Past Medical History n/a Social History/Family History 2nd Hand Smoke Exposure: No Immunizations Hepatitis A: No Hepatitis B: Yes OB - Admission Exam Physical Exam HEENT: NCAT Heart: Rhythm Normal Lungs: Clear Abdomen: Gravid Extremities: Normal Reflexes: Normal Labs Laboratory Tests Test 07/09/22 11:57 07/09/22 12:28 Range/Units Urine Color YELLOW Urine Clarity CLEAR Urine pH 6.0 5-9 Urine Specific [place] >=1.030 1.016-1.022 Urine Protein NEGATIVE NEGATIVE Urine Glucose (UA) NEGATIVE NEGATIVE Urine Ketones 2+ H NEGATIVE Urine Nitrite NEGATIVE NEGATIVE Urine Bilirubin NEGATIVE NEGATIVE Urine Urobilinogen 0.2 < = 1.0 MG/DL Urine Leukocyte Esterase NEGATIVE NEGATIVE Urine RBC (Auto) NEGATIVE NEGATIVE Urine RBC RARE /HPF Urine WBC NONE /HPF Urine Squamous Epithelial Cells 0-2 /HPF Urine Crystals NONE /LPF Urine Bacteria FEW H /HPF Urine Casts NONE /LPF Urine Mucus SMALL H /LPF Urine Culture Indicated NO White Blood Count 6.5 4.3-11.0 10^3/uL Red Blood Count 3.95 3.80-5.11 10^6/uL Hemoglobin 11.8 11.5-16.0 g/dL Hematocrit 35 35-52 % Mean Corpuscular Volume 89 80-99 fL Mean Corpuscular Hemoglobin 30 25-34 pg Mean Corpuscular Hemoglobin Concent 34 32-36 g/dL Red Cell Distribution Width 13.9 10.0-14.5 % Platelet Count 230 130-400 10^3/uL Mean Platelet Volume 10.5 9.0-12.2 fL Immature Granulocyte % (Auto) 0 % Neutrophils (%) (Auto) 73 42-75 % Lymphocytes (%) (Auto) 19 12-44 % Monocytes (%) (Auto) 6 0-12 % Eosinophils (%) (Auto) 1 0-10 % Basophils (%) (Auto) 0 0-10 % Neutrophils # (Auto) 4.7 1.8-7.8 10^3/uL Lymphocytes # (Auto) 1.3 1.0-4.0 10^3/uL Monocytes # (Auto) 0.4 0.0-1.0 10^3/uL Eosinophils # (Auto) 0.1 0.0-0.3 10^3/uL Basophils # (Auto) 0.0 0.0-0.1 10^3/uL Immature Granulocyte # (Auto) 0.0 0.0-0.1 10^3/uL OB - Assessment/Plan/Diagnosis Assessment Assessment: section Admission Dx 31 yo @ 22 weeks gestation IUFD Hx of csection x 2 Admission Status: Inpatient Order (span 2 midnights) Reason for Inpatient Admission: RCS- 22 week demise Plan Plan: Section FENECH,KEE S DO Jul 09, 2022 12:54
[2022-07-09] MEDS ORDERED: ALPRAZolam 0.25 MG (XANAX) TAB PO PRN (13:00)
[2022-07-09] MEDS ORDERED: ONDANSETRON 4 MG/2 ML (SDV) Z0FRAN IVP PRN (13:00)
[2022-07-09] MEDS ORDERED: NALOXONE 0.4 MG/ML 1 ML (NARCAN) VIAL IV PRN (13:00)
[2022-07-09] MEDS ORDERED: HYDROcodone/APAP 5 MG/325 MG (LORTAB) TAB PO PRN (13:00)
[2022-07-09] MEDS ORDERED: MEASLES,MUMPS,RUBELLA 1 EA INJ SC SCH (13:00)
[2022-07-09] MEDS ORDERED: BUPIVACAINE 0.5% 30 ML (SENSORCAINE) VIAL ONE (13:41)
[2022-07-09] MEDS ORDERED: PHENYLEPHRINE 100 MCG/ML 10 ML (ANESTHESIA) SYR ONE (13:43)
[2022-07-09] MEDS ORDERED: KETOROLAC 30 MG/ML VIAL ONE (13:50)
[2022-07-09] MEDS: OXYTOCIN PRE-MIX DRIP 500 ML IV SCH ×2 (14:55→18:49)
[2022-07-09] MEDS ORDERED: FLU QUADRIvalent (6 months+) 60 mcg/0.5 ml 2022-23 (Fluzone) IM ONE (15:30)
--- NOTE | 2022-07-09 17:43 | OPERATIVE REPORT ---
PREOPERATIVE DIAGNOSES: 1. A 31-year-old at 22 weeks' gestation. 2. Intrauterine demise. 3. Previous section x2. POSTOPERATIVE DIAGNOSES: 1. A 31-year-old at 22 weeks' gestation. 2. Intrauterine demise. 3. Previous section x2. PROCEDURE: Repeat Pfannenstiel skin incision with classical uterine incision. SURGEON: George Seals DO SENIOR TECHNICAL EDITOR: Dr. Dagoberto Tellez who was necessary for manipulation and retraction throughout the procedure. ANESTHESIA: Spinal. ESTIMATED BLOOD LOSS: 300 mL URINE OUTPUT: 25 mL clear at the end of the procedure. FLUIDS: 1000 mL lactated Ringer's solution. FINDINGS: A 22-week size uterus with fetus that appeared 22 weeks evidence of multiple days of demise, darkened amniotic fluid that was brownish jason in color. Grossly normal appearing uterus, bilateral fallopian tubes and ovaries. SPECIMENS SENT: A 22-week fetus for autopsy and 22-week placenta. INDICATIONS FOR PROCEDURE: This 31-year-old female, was a patient who is sent to my care from her family practice doctor who was administered in care when she was found to have a demise at 22 weeks due to her risk of uterine rupture, repeat was reviewed with the patient and decided upon with her and I earlier today. Risk of bleeding, infection, damage to surrounding structures including but not limited to bowel, bladder, ureter, kidneys, possible need for reoperation, postoperative complications that may occur, recovery timeframe, risk from anesthesia, and even were all discussed with the patient. After all of her questions were answered, consent was obtained, the patient was taken to the operating room. OPERATIVE REPORT IN DETAIL: Once in the operating room, spinal analgesia was administered and found to be adequate. She was placed in the supine position with leftward tilt, prepped and draped in normal sterile fashion. Timeout was performed. Anesthesia was tested and then make a Pfannenstiel skin incision through the previously existing scar using knife and carried down to the underlying fascia using Bovie cautery. The fascial incision extended laterally using Bovie cautery. The superior aspect of the fascial incision was grasped with Huan clamps, tented upward, dissected off the underlying rectus muscles. The inferior aspect of the fascial incision was then grasped with Huan clamps, tented upward, dissected off the underlying rectus muscles. The rectus muscles were dissected down the midline sharply using Louis scissors, which exposed the peritoneum, which entered bluntly, extended using blunt traction. An Mynor ring retractor was placed in the peritoneal incision, which offers excellent lateral sidewall retraction. I identified the lower uterine segment and was found to be thinned out. However, thickened for 22 weeks. Therefore, I make a midline classical incision with a knife until membranes were encountered, then I extended the midline incision using Louis scissors, which exposed the membranes and placenta. I ruptured the membranes using Allis clamp. Darkened amniotic fluid was noted. Fetus was delivered. The head and body appeared edematous and jellatinous. The was, however, delivered intact and the cord was clamped and cut and the fetus is handed off to the nurse in attendance who was prepping the fetus for viewing of the mother and father. Placenta delivered intact after this. The uterus was then exteriorized and cleared of all endometrial clots and debris. I then proceeded with closing the uterine incision using 0 Vicryl suture in a running locked fashion. Second layer of imbricating 0 Monocryl was placed. Excellent hemostasis was noted after doing this. I then placed the uterus back in the pelvis and copiously irrigated the pelvis using normal saline. Once again, there is no active bleeding noted from any of my dissection planes. I placed Interceed antiadhesive over all my planes of dissection. I removed the Mynor ring retractor and then proceeded with closing the peritoneum using 3-0 Vicryl suture in a running fashion. The rectus muscles were reapproximated using 3-0 Vicryl suture in interrupted fashion. The fascia was reapproximated using 0 Vicryl suture in a running fashion. Subcutaneous tissue was reapproximated using 3-0 plain interrupted subcutaneous stitch and skin reapproximated using 4-0 Monocryl running subcuticular. Dermabond was applied to incision and sterile dressing with adhesive white tape. The patient tolerated the procedure well and was taken to recovery area in stable condition. Lap and sponge counts were correct at the end of the procedure. Instrument counts correct as well. Two grams of Ancef were given preoperatively for infection prophylaxis. Job ID: [id number] DocumentID: [id number] Dictated Date: 07/09/2022 13:56:11 [place] Date: 07/09/2022 17:41:00 Dictated By: DO ZAHRA CAMARGOD
[2022-07-09] MEDS: KETOROLAC 30 MG/ML VIAL IV SCH ×2 (20:11→20:16)
[2022-07-09] MEDS: DOCUSATE SODIUM 100 MG (COLACE) CAP PO SCH (20:16)
[2022-07-09] MEDS ORDERED: SIMETHICONE 80 MG (MYLICON) CHEW ONE (20:26)
[2022-07-09] MEDS: SIMETHICONE 80 MG (MYLICON) CHEW PO SCH (20:43)
[2022-07-09] MEDS: CATHETER FLUSH 10 ML SYR IV SCH ×2 (22:00→23:08)
[2022-07-10 01:15] VITALS: BP 122/69
[2022-07-10] MEDS: KETOROLAC 30 MG/ML VIAL IV SCH ×2 (01:20→06:24)
[2022-07-10] MEDS: CATHETER FLUSH 10 ML SYR IV SCH ×3 (01:20→08:27)
[2022-07-10 05:41] LABS: BASOPHILS % (AUTO) 0 % (0-10); EOSINOPHILS # (AUTO) 0.1 10^3/uL (0.0-0.3); EOSINOPHILS % (AUTO) 1 % (0-10); HEMATOCRIT 31 % (35-52); HEMOGLOBIN 10.4 g/dL (11.5-16.0); LYMPHOCYTES # (AUTO) 1.4 10^3/uL (1.0-4.0); LYMPHOCYTES % (AUTO) 16 % (12-44); MEAN CORPUSCULAR HEMOGLOBIN 30 pg (25-34); MEAN CORPUSCULAR HGB CONC 34 g/dL (32-36); MEAN CORPUSCULAR VOLUME 89 fL (80-99); MEAN PLATELET VOLUME 10.8 fL (9.0-12.2); MONOCYTES # (AUTO) 0.7 10^3/uL (0.0-1.0); MONOCYTES % (AUTO) 8 % (0-12); NEUTROPHILS # (AUTO) 6.1 10^3/uL (1.8-7.8); NEUTROPHILS % (AUTO) 74 % (42-75); PLATELET COUNT 196 10^3/uL (130-400); WHITE BLOOD COUNT 8.3 10^3/uL (4.3-11.0)
[2022-07-10 06:15] VITALS: BP 136/75
--- NOTE | 2022-07-10 08:11 | Postpartum Progress Note ---
Note Note Day # Subjective: Patient is without complaints. Ambulating, voiding. Tolerating a regular diet without nausea or vomiting. Normal lochia. Pain is well controlled with oral pain medications. Objective: Physical Exam: General - Alert and oriented, no apparent distress Abdomen - Soft, appropriately tender to palpation, non-distended, fundus firm at umbilicus Extremities - no edema, negative Saskia's bilaterally Incision- c/d/i Assessment: POD 1 RLTCS Acute blood loss anemia demise at 22 weeks Plan: Encourage ambulation. Ferrous sulfate supplementation. Plan for discharge today if able Vitals - Labs Vital Signs - I&O Vital Signs Date Time Temp Pulse Resp B/P (MAP) Pulse Ox O2 Delivery O2 Flow Rate FiO2 07/10/22 06:15 36.8 76 18 136/75 (95) 97 Room Air 07/10/22 01:15 37.1 85 18 122/69 (86) 97 Room Air 07/09/22 20:16 37.0 69 18 141/79 (99) 100 Room Air 07/09/22 16:30 36.8 63 18 115/56 (75) 99 Room Air 07/09/22 15:40 Room Air 07/09/22 15:25 36.5 56 16 87/53 (64) 100 Room Air 07/09/22 15:05 36.4 55 16 107/53 (71) 100 Room Air 07/09/22 14:50 36.5 20 109/65 (80) 98 Room Air 07/09/22 14:50 Room Air 07/09/22 14:40 20 126/98 (107) 98 Room Air 07/09/22 14:35 Room Air 07/09/22 14:30 20 98/53 (68) 98 Room Air 07/09/22 14:20 Room Air 07/09/22 14:20 16 96/56 (69) 100 Room Air 07/09/22 14:10 20 105/65 (78) 100 Room Air 07/09/22 14:05 Room Air 07/09/22 13:54 Room Air 07/09/22 13:54 36.2 20 107/96 (100) 100 Room Air 07/09/22 11:58 57 18 127/76 (93) Room Air 07/09/22 11:30 36.9 69 18 100 Room Air 07/09/22 11:28 36.9 69 18 134/71 (92) 99 Room Air I & O 07/10/22 07:00 Intake Total 4050 ml Output Total 1125 ml Balance 2925 ml Labs Laboratory Tests 07/09/22 11:57: Urine Color YELLOW, Urine Clarity CLEAR, Urine pH 6.0, Urine Specific [place] >=1.030, Urine Protein NEGATIVE, Urine Glucose (UA) NEGATIVE, Urine Ketones 2+H, Urine Nitrite NEGATIVE, Urine Bilirubin NEGATIVE, Urine Urobilinogen 0.2, Urine Leukocyte Esterase NEGATIVE, Urine RBC (Auto) NEGATIVE, Urine RBC RARE, Urine WBC NONE, Urine Squamous Epithelial Cells 0-2, Urine Crystals NONE, Urine Bacteria FEWH, Urine Casts NONE, Urine Mucus SMALLH, Urine Culture Indicated NO 07/09/22 12:28: White Blood Count 6.5, Red Blood Count 3.95, Hemoglobin 11.8, Hematocrit 35, Mean Corpuscular Volume 89, Mean Corpuscular Hemoglobin 30, Mean Corpuscular Hemoglobin Concent 34, Red Cell Distribution Width 13.9, Platelet Count 230, Mean Platelet Volume 10.5, Immature Granulocyte % (Auto) 0, Neutrophils (%) (Auto) 73, Lymphocytes (%) (Auto) 19, Monocytes (%) (Auto) 6, Eosinophils (%) (Auto) 1, Basophils (%) (Auto) 0, Neutrophils # (Auto) 4.7, Lymphocytes # (Auto) 1.3, Monocytes # (Auto) 0.4, Eosinophils # (Auto) 0.1, Basophils # (Auto) 0.0, Immature Granulocyte # (Auto) 0.0 07/10/22 05:22: White Blood Count 8.3, Red Blood Count 3.46L, Hemoglobin 10.4L, Hematocrit 31L, Mean Corpuscular Volume 89, Mean Corpuscular Hemoglobin 30, Mean Corpuscular Hemoglobin Concent 34, Red Cell Distribution Width 14.2, Platelet Count 196, Mean Platelet Volume 10.8, Immature Granulocyte % (Auto) 0, Neutrophils (%) (Auto) 74, Lymphocytes (%) (Auto) 16, Monocytes (%) (Auto) 8, Eosinophils (%) (Auto) 1, Basophils (%) (Auto) 0, Neutrophils # (Auto) 6.1, Lymphocytes # (Auto) 1.4, Monocytes # (Auto) 0.7, Eosinophils # (Auto) 0.1, Basophils # (Auto) 0.0, Immature Granulocyte # (Auto) 0.0 KEE LAUGHLIN DO Jul 10, 2022 08:11
--- NOTE | 2022-07-10 08:12 | Discharge Inst-Women's Service ---
Discharge Inst-Women's Serv Depart Medication/Instructions New, Converted or Re-Newed RX: Transmitted to Pharmacy Final Diagnosis POD 1 RLTCS Problems Reviewed?: Yes Consults/Follow Up Additional Follow Up: Yes Orders/Referrals Dr. Seals in 7-[address] Monroe in 6 weeks Activity Activity: Activity as Tolerated Driving Instructions: No Driving for 1 Week NO SMOKING: NO SMOKING Nothing Inside Vagina: No Douching, No [place], No Tampons Diet Discharge Diet: No Restrictions Symptoms to Report to : Bleeding Excessive, Pain Increased, Fever Over 101 Degrees F, Vaginal Bleeding Increase, Questions/Concerns For Any Problems or Questions: Contact Your Physician Skin/Wound Care Infection Signs and Symptoms: Increased Redness, Foul Odor of Wound, Increased Drainage, Skin Itchy or Has a Rash, Increased Swelling, Temperature Above 101 F Operative Area Clean and Dry: Keep Incision Clean/Dry Stitches/Demetria/Dermabond: Dermabond, Care of Stitches Bathing Instructions: KEE Hill DO Jul 10, 2022 08:12
[2022-07-10] MEDS ORDERED: IBUP-844 PO (08:15)
[2022-07-10] MEDS ORDERED: ACHD5005 PO (08:15)
[2022-07-10] MEDS ORDERED: DOCU100C37 PO (08:15)
[2022-07-10] MEDS ORDERED: ALPR.25T PO (08:15)
[2022-07-10] MEDS ORDERED: SIME80TA16 PO (08:15)
[2022-07-10 08:26] VITALS: BP 132/69
[2022-07-10] MEDS: DOCUSATE SODIUM 100 MG (COLACE) CAP PO SCH (08:26)
[2022-07-10] MEDS: SIMETHICONE 80 MG (MYLICON) CHEW PO SCH ×2 (08:26→14:02)
--- NOTE | 2022-07-10 09:44 | Anesthesia-Regional Post-Op ---
Regional Patient Condition Mental Status: Alert, Oriented x3 Circulation: Same as Pre-Op Headache: Absent Sensation: Full Recovery Motor Block: Absent Post Op Complications Complications None Follow Up Care/Instructions Patient Instructions None needed. Anesthesia/Patient Condition Patient is doing well, no complaints, stable vital signs, no apparent adverse anesthesia problems. No complications reported per nursing. D/C home per [facility] Criteria: Yes MOUSTAPHA DONG CRNA Jul 10, 2022 09:44
[2022-07-10] MEDS ORDERED: FLU QUADRIvalent (6 months+) 60 mcg/0.5 ml 2022-23 (Fluzone) IM ONE (09:54)
[2022-07-10 12:22] VITALS: BP 134/75
[2022-07-10] MEDS ORDERED: IBUPROFEN 600 MG (MOTRIN) TAB PO SCH (13:00)
[2022-07-10 16:05] VITALS: BP 134/75
== END 2022-07-10 16:05 | disposition home or self-care (01) | DRG 787 ==
LOC: LDRP 11:13 → WS 14:54
PROVIDERS: ADMIT Obstetrics & Gynecology; ATTEND Obstetrics & Gynecology
PROC: 10D00Z1 Extraction of Products of Conception, Low, Open Approach (ICD-10-PCS; principal; 2022-07-09 13:04)
DX: O36.4XX0 Maternal care for intrauterine death, not applicable or unspecified (principal); D62 Acute posthemorrhagic anemia; O34.211 Maternal care for low transverse scar from previous cesarean delivery; Z3A.22 22 weeks gestation of pregnancy; Z37.1 Single stillbirth; O90.81 Anemia of the puerperium; Z23 Encounter for immunization
CPT/HCPCS: 36415; 81000; 83033; 85025; 86850; 86900; 86901; 90686; 94664

== ENCOUNTER 2022-09-16 14:08 | Emergency (ER) | payer MEDICAID ==
[~2022-09-16] VITALS: Ht 165 cm; Wt 110.0 kg
[~2022-09-16 14:08] MED LIST changes: +ALPR.25T PO; +SIME80TA16 PO
--- NOTE | 2022-09-16 14:24 | ED Neurological Problem ---
General Stated Complaint: PLUMMER; NAUSA; FEVER; CHEST "FEELS FUNNY" History of Present Illness Date Seen by Provider: Sep 16, 2022 Time Seen by Provider: 14:21 Initial Comments 32-year-old female with active shingles on her left hip is here with complaints of pain from the shingles. Patient started developing the lesions on [place], and saw her PCP who started her on acyclovir and gabapentin for the pain. Patient states that the gabapentin is not helping and she is in severe burning pain. Patient states that she feels nauseated and ill from the severity of the pain. Patient stated that she had fever at the time of shingles but does not have a fever now. Denies abdominal pain, nausea and vomiting, diarrhea, chest pain. Allergies and Home Medications Allergies Coded Allergies: Penicillins (Verified Allergy, Unknown, 04/22/21) Pertussis Vaccines (Verified Allergy, Unknown, Anaphylaxis, 04/22/21) SWELLED UP amoxicillin (Verified Allergy, Unknown, Anaphylaxis, 04/22/21) MOUTH SWELLED UP clavulanic acid (Verified Allergy, Unknown, Anaphylaxis, 04/22/21) MOUTH SWELLED UP hydrocodone (Verified Allergy, Unknown, 09/16/22) Patient Home Medication List Home Medication List Reviewed: Yes ALPRAZolam (Xanax Tablet) 0.25 Mg Tab, 0.25 MG PO Q8H PRN for ANXIETY Prescribed by: KEE LAUGHLIN on 07/10/22 0816 Docusate Sodium (Docusate Sodium) 100 Mg Capsule, 100 MG PO BID PRN for C ONSTIPATION-1ST LINE Prescribed by: KEE LAUGHLIN on 07/10/22 0815 Hydrocodone Bit/Acetaminophen (HYDROcodone/APAP 5 MG/325 MG TAB) 1 Tab Tab, 1-2 EA PO Q6HR PRN for PAIN-SEE DOSE INSTRUCTIONS Prescribed by: KEE LAUGHLIN on 07/10/22 08 Ibuprofen (Ibu) 600 Mg Tablet, 600 MG PO Q6H Prescribed by: KEE LAUGHLIN on 07/10/22 08 Vit No.124/Iron/FA ( Vitamin Tablet) 1 Each Tablet, 1 EACH PO, (Reported) Entered as Reported by: SUSAN STEPHENSON on 01/28/21 1058 Simethicone (Simethicone) 80 Mg Tab.chew, 80 MG PO PCHS Prescribed by: KEE LAUGHLIN on 07/10/22 0815 Review of Systems Review of Systems Constitutional: no symptoms reported Eyes: No Symptoms Reported Ears, Nose, Mouth, Throat: no symptoms reported Respiratory: no symptoms reported Cardiovascular: no symptoms reported Gastrointestinal: nausea Genitourinary: no symptoms reported Musculoskeletal: no symptoms reported Skin: see HPI, lesions Psychiatric/Neurological: No Symptoms Reported Endocrine: No Symptoms Reported Hematologic/Lymphatic: No Symptoms Reported Past Pqdgark-Laecfy-Lwhfwh Hx Seasonal Allergies Seasonal Allergies: No Past Medical History Surgery/Hospitalization HX: T&A , ganglian cyst, Surgeries: Yes ( X 1; RIGHT HAND GANGLION CYST REMOVAL) Adenoidectomy, Section, Tonsillectomy Respiratory: No Currently Using CPAP: No Currently Using BIPAP: No Cardiac: No Neurological: No Reproductive Disorders: No Female Reproductive Disorders: Denies Sexually Transmitted Disease: No HIV/AIDS: No Genitourinary: No Gastrointestinal: No Musculoskeletal: No Endocrine: No HEENT: No Cancer: No Psychosocial: No Integumentary: No Blood Disorders: No Physical Exam Vital Signs Vital Signs - First Documented 09/16/22 14:25 Temp 37.9 Pulse 89 Resp 16 B/P (MAP) 133/101 (112) Pulse Ox 97 O2 Delivery Room Air Capillary Refill : Height, Weight, BMI Height: '" Weight: lbs. oz. kg; 39.80 BMI Method: General Appearance: WD/WN, mild distress HEENT: PERRL/EOMI, normal ENT inspection Neck: non-tender, full range of motion Respiratory: chest non-tender, lungs clear, normal breath sounds Cardiovascular: regular rate, rhythm Gastrointestinal: normal bowel sounds, non tender, soft Extremities: normal range of motion Neurologic/Psychiatric: no motor/sensory deficits, alert, oriented x 3 Crainal Nerves: normal hearing, normal speech, PERRL Coordination/Gait: normal gait Motor/Sensory: no motor deficit, no sensory deficit Skin: rash (Ulcerated left rash seen along the T12, L1, L2 dermatomes on the left side, appears as if vesicles have been broken and in the process of healing, does not cross the midline. Severely tender.) Lymphatic: no adenopathy Progress/Results/Core Measures Results/Orders My Orders Orders - SUNNI JUARES MD Ketorolac Injection (Toradol Injection) (09/16/22 14:45) Tramadol Tablet (Ultram Tablet) (09/16/22 14:45) Medications Given in ED Current Medications Medications Dose Ordered Sig/Macho Route Start Time Stop Time Status Last Admin Dose Admin Ketorolac Tromethamine 30 mg ONCE ONCE IM 09/16/22 14:45 09/16/22 14:46 DC 09/16/22 14:38 30 MG Tramadol HCl 50 mg ONCE ONCE PO 09/16/22 14:45 09/16/22 14:46 DC 09/16/22 14:38 50 MG Vital Signs/I&O 09/16/22 14:25 Temp 37.9 Pulse 89 Resp 16 B/P (MAP) 133/101 (112) Pulse Ox 97 O2 Delivery Room Air Progress Progress Note : Progress Note 1. POSTHERPETIC NEURALGIA: - Tramadol 50mg STAT in ER and Toradol im given. Significant improvement of pain with this. - Prescription for Tramadol to be taken only for severe pain as needed every 8 hours. -Advised to continue gabapentin and acyclovir of as prescribed by PCP -Follow-up with PCP within the next 7 days -The patient was seen in the ED, and treated appropriately to presentation at a specific point in time. Patient is informed that there is a possibility that disease and illness can evolve and change in acuity rapidly or slowly after patient is discharged from the ER. Precautionary advice given to the patient for immediate return to ER if symptoms worsen or do not resolve, and to seek emergency care sooner rather than later. Pt also advised on the importance of PCP follow up and compliance with management and follow up plan with PCP and/or specialist, as this is part of the management plan. Pt verbally expressed understanding. Departure Impression Primary Impression: Postherpetic neuralgia Disposition: 01 HOME, SELF-CARE Condition: Improved Departure-Patient Inst. Referrals: DANIEL RUBIO MD (PCP/Family) Primary Care Physician Patient Instructions: Ramón (LEANNE) Add. Discharge Instructions: - Prescription for Tramadol to be taken only for severe pain as needed every 8 hours. -Advised to continue gabapentin and acyclovir of as prescribed by PCP -Follow-up with PCP within the next 7 days Scripts Tramadol HCl (Tramadol HCl) 50 Mg Tablet 50 MG PO Q8H for Severe Pain for 3 Days, #10 TAB Prov: SUNNI JUARES MD 09/16/22 SUNNI JUARES MD Sep 16, 2022 14:24
[2022-09-16 14:25] VITALS: BP 133/101
[2022-09-16] MEDS ORDERED: KETOROLAC 30 MG/ML VIAL IM ONE (14:45)
[2022-09-16] MEDS ORDERED: TRAM50TA3 PO (15:12)
== END 2022-09-16 15:15 | disposition home or self-care (01) ==
LOC: EDUNIT# 14:08 → ER FS 14:13
DX: B02.29 Other postherpetic nervous system involvement (principal); Z88.5 Allergy status to narcotic agent
CPT/HCPCS: 99284

== ENCOUNTER 2022-11-07 17:06 | Emergency (ER) | payer MEDICAID, OTHER ==
[~2022-11-07] VITALS: Ht 165.1 cm; Wt 111.1 kg
[~2022-11-07 17:06] MED LIST changes: +TRAM50TA3 PO
[2022-11-07 17:10] VITALS: BP 152/80
--- NOTE | 2022-11-07 17:21 | ED Head Injury ---
General Chief Complaint: Head/Cervical Problems Stated Complaint: WC HEAD INJ; PLUMMER; LIGHT SENSITIVITY History of Present Illness Date Seen by Provider: Nov 07, 2022 Time Seen by Provider: 17:14 Initial Comments 32-year-old female with PMH of depression, is here with complaints of hitting her head on a metal beam at work at 10 AM today. Patient works in a warehouse. Since this occurrence, patient has developed photophobia, knot on the top of her head, headache, neck pain, and feels sleepy. Patient was scrolling through her phone looking at make-up products when I walked into the exam room. Denies LOC, blurry vision, hearing disturbances, dizziness. Patient took an Excedrin at around 1 PM today. Allergies and Home Medications Allergies Coded Allergies: Penicillins (Verified Allergy, Unknown, 04/22/21) Pertussis Vaccines (Verified Allergy, Unknown, Anaphylaxis, 04/22/21) SWELLED UP amoxicillin (Verified Allergy, Unknown, Anaphylaxis, 04/22/21) MOUTH SWELLED UP clavulanic acid (Verified Allergy, Unknown, Anaphylaxis, 04/22/21) MOUTH SWELLED UP hydrocodone (Verified Allergy, Unknown, 09/16/22) Patient Home Medication List Home Medication List Reviewed: Yes ALPRAZolam (Xanax Tablet) 0.25 Mg Tab, 0.25 MG PO Q8H PRN for ANXIETY Prescribed by: KEE LAUGHLIN on 07/10/22 0816 Docusate Sodium (Docusate Sodium) 100 Mg Capsule, 100 MG PO BID PRN for C ONSTIPATION-1ST LINE Prescribed by: KEE LAUGHLIN on 07/10/22 0815 Hydrocodone Bit/Acetaminophen (HYDROcodone/APAP 5 MG/325 MG TAB) 1 Tab Tab, 1-2 EA PO Q6HR PRN for PAIN-SEE DOSE INSTRUCTIONS Prescribed by: KEE LAUGHLIN on 07/10/22 0815 Ibuprofen (Ibu) 600 Mg Tablet, 600 MG PO Q6H Prescribed by: KEE LAUGHLIN on 07/10/22 0815 Vit No.124/Iron/FA ( Vitamin Tablet) 1 Each Tablet, 1 EACH PO, (Reported) Entered as Reported by: SUSAN STEPHENSON on 01/28/21 1058 Simethicone (Simethicone) 80 Mg Tab.chew, 80 MG PO PCHS Prescribed by: KEE LAUGHLIN on 07/10/22 0815 Tramadol HCl (Tramadol HCl) 50 Mg Tablet, 50 MG PO Q8H Prescribed by: SUNNI JUARES MD on 09/16/22 1512 Review of Systems Review of Systems Constitutional: no symptoms reported Eyes: Photophobia Ears, Nose, Mouth, Throat: no symptoms reported Respiratory: no symptoms reported Cardiovascular: no symptoms reported Gastrointestinal: no symptoms reported Genitourinary: no symptoms reported Musculoskeletal: no symptoms reported Skin: no symptoms reported Psychiatric/Neurological: Headache Endocrine: No Symptoms Reported Hematologic/Lymphatic: No Symptoms Reported Past Sfvlqof-Yeqiad-Uqhcgb Hx Seasonal Allergies Seasonal Allergies: No Past Medical History Surgery/Hospitalization HX: T&A , ganglian cyst, Surgeries: Yes ( X 1; RIGHT HAND GANGLION CYST REMOVAL) Adenoidectomy, Section, Tonsillectomy Respiratory: No Currently Using CPAP: No Currently Using BIPAP: No Cardiac: No Neurological: No Reproductive Disorders: No Female Reproductive Disorders: Denies Sexually Transmitted Disease: No HIV/AIDS: No Genitourinary: No Gastrointestinal: No Musculoskeletal: No Endocrine: No HEENT: No Cancer: No Psychosocial: No Integumentary: No Blood Disorders: No Physical Exam Vital Signs Vital Signs - First Documented 11/07/22 17:10 Temp 36.6 Pulse 69 Resp 18 B/P (MAP) 152/80 (104) Pulse Ox 100 O2 Delivery Room Air Capillary Refill : Height, Weight, BMI Height: '" Weight: lbs. oz. kg; 40.00 BMI Method: General Appearance: WD/WN, mild distress HEENT: PERRL/EOMI, TMs normal, photophobia, other (Contusion to right parietal area approximately 3 cm diameter) Neck: full range of motion, supple, normal inspection, other (Tender over contusion) Cardiovascular: regular rate, rhythm Respiratory: lungs clear Back: normal inspection, no vertebral tenderness Extremities: normal range of motion Psychiatric: alert, oriented x 3 Crainal Nerves: normal hearing, normal speech, PERRL Coordination/Gait: normal gait Motor/Sensory: no motor deficit, no sensory deficit Skin: normal color [place] Coma Score Best Eye Response: (4) Open Spontaneously Best Verbal Response: (5) Oriented Best Motor Response: (6) Obeys Commands Micky Total: 15 Progress/Results/Core Measures Results/Orders My Orders Orders - SUNNI JUARES MD Ct Head/Cervical Spine Wo (11/07/22 17:21) Vital Signs/I&O 11/07/22 17:10 Temp 36.6 Pulse 69 Resp 18 B/P (MAP) 152/80 (104) Pulse Ox 100 O2 Delivery Room Air Progress Progress Note : Progress Note 1. BLUNT HEAD INJURY: SCALP CONTUSION: - CT HEAD & C-SPINE: no acute changes -Toradol im given after CT scan results came back. - Advised ice application and ibuprofen 600mg every 6 hours as needed for pain - Concussion precautions given -Avoid heavy lifting until cleared by [facility] or PCP. Avoid eyes draining with electronics, books, TV for the next few days. - Follow up with [facility] services within the next 3 days and with PCP in the next 7 days -The patient was seen in the ED, and treated appropriately to presentation at a specific point in time. Patient is informed that there is a possibility that d isease and illness can evolve and change in acuity rapidly or slowly after patient is discharged from the ER. Precautionary advice given to the patient for immediate return to ER if symptoms worsen or do not resolve, and to seek emergency care sooner rather than later. Pt also advised on the importance of PCP follow up and compliance with management and follow up plan with PCP and/or specialist, as this is part of the management plan. Pt verbally expressed understanding. Diagnostic Imaging Diagonstic Imaging: CT Plain Films/CT/US/NM/MRI: c-spine, head Comments [facility], [place] NAME: SHAINA ARRIAZA [facility] REC#: [id number] PT STATUS: REG ER : 1990 PHYSICIAN: SUNNI JUARES MD ADMIT DATE: 11/07/22/ER FS Draft Date of Exam:11/07/22 CT HEAD/CERVICAL SPINE WO Clinical indications: Patient hit head on steel beam at work and has nausea and lightheaded sensation. Exam: Head CT without IV contrast with sagittal and coronal reformations. Axial CT scan of the cervical spine with sagittal and coronal reformations. Auto Exposure Controls were utilized during the CT exam to meet ALARA standards for radiation dose reduction. Comparison: None. Findings: Head CT: There is no evidence of acute cerebral infarct, intracranial hemorrhage, or gross mass effect. The brain parenchymal volume appears appropriate for patient's age. There is normal jason-white matter distinction. There is no significant midline shift or herniation. There is no evidence of hydrocephalus. The basal cisterns are unremarkable. There is no skull fracture. The skull, extracranial soft tissue, and orbits are unremarkable. The paranasal sinuses are unremarkable. Temporal bones show no significant abnormality. Cervical spine: There is no acute cervical spine fracture or dislocation. Vertebral body heights and intervertebral disk heights are maintained. There is no significant paraspinal soft tissue abnormality. Visualized upper lung kenny are clear. Impression: 1: There is no CT evidence of acute intracranial process. There is no skull fracture. 2: There is no acute cervical spine fracture or dislocation. Dictated on workstation # [id number] Dict: 11/07/22 173 Trans: 11/07/22 173 [facility] [id number] Interpreted by: CHRISTA DHALIWAL MD Electronically signed by: Departure Impression Primary Impression: Blunt head injury Qualified Codes: S09.8XXA - Other specified injuries of head, initial encounter Additional Impression: Contusion of parietal region of scalp Qualified Codes: S00.03XA - Contusion of scalp, initial encounter Disposition: 01 HOME, SELF-CARE Condition: Stable Departure-Patient Inst. Referrals: DANIEL RUBIO MD (PCP) Primary Care Physician Patient Instructions: Concussion in adults, Minor Contusion ED, Minor Head Injury, Adult ED Add. Discharge Instructions: - Advised ice application and ibuprofen 600mg every 6 hours as needed for pain - Concussion precautions given -Avoid heavy lifting until cleared by [facility] or PCP. Avoid eyes draining with electronics, books, TV for the next few days. - Follow up with [facility] services within the next 3 days and with PCP in the next 7 days All discharge instructions reviewed with patient and/or family. Voiced understanding. SUNNI JUARES MD Nov 07, 2022 17:21
--- NOTE | 2022-11-07 17:38 | Diagnostic Imaging Report ---
Clinical indications: Patient hit head on steel beam at work and has nausea and lightheaded sensation. Exam: Head CT without IV contrast with sagittal and coronal reformations. Axial CT scan of the cervical spine with sagittal and coronal reformations. Auto Exposure Controls were utilized during the CT exam to meet ALARA standards for radiation dose reduction. Comparison: None. Findings: Head CT: There is no evidence of acute cerebral infarct, intracranial hemorrhage, or gross mass effect. The brain parenchymal volume appears appropriate for patient's age. There is normal jason-white matter distinction. There is no significant midline shift or herniation. There is no evidence of hydrocephalus. The basal cisterns are unremarkable. There is no skull fracture. The skull, extracranial soft tissue, and orbits are unremarkable. The paranasal sinuses are unremarkable. Temporal bones show no significant abnormality. Cervical spine: There is no acute cervical spine fracture or dislocation. Vertebral body heights and intervertebral disk heights are maintained. There is no significant paraspinal soft tissue abnormality. Visualized upper lung kenny are clear. Impression: 1: There is no CT evidence of acute intracranial process. There is no skull fracture. 2: There is no acute cervical spine fracture or dislocation. Dictated by: Dictated on workstation # [id number]
[2022-11-07] MEDS ORDERED: KETOROLAC 30 MG/ML VIAL IM ONE (18:00)
== END 2022-11-07 18:15 | disposition home or self-care (01) ==
LOC: EDUNIT# 17:06 → ER FS 17:08
DX: S09.90XA Unspecified injury of head, initial encounter (principal); S00.03XA Contusion of scalp, initial encounter; W22.09XA Striking against other stationary object, initial encounter; Y92.59 Other trade areas as the place of occurrence of the external cause; Y99.0 Civilian activity done for income or pay
CPT/HCPCS: 70450; 72125